=== PATIENT | male | born 1950 | race Caucasian/White ===

== ENCOUNTER 2018-06-03 09:45 | Observation (INO) | payer MEDICARE, BC ==
[2018-05-31 11:23] LABS: BASOPHILS # (AUTO) 0.1 (0.0-0.1); BASOPHILS % 0.4 % (0.0-1.0); EOSINOPHILS # (AUTO) 0.1 (0.0-0.4); EOSINOPHILS % 0.5 % (0.0-6.0); HEMATOCRIT 43.3 % (38.2-49.6); HEMOGLOBIN 14.5 g/dL (14.0-18.0); LYMPHOCYTES # (AUTO) 2.3 (1.0-3.2); LYMPHOCYTES % 13.7 % (18.0-39.1); MEAN CORPUSCULAR HEMOGLOBIN 30.3 pg (28-32); MEAN CORPUSCULAR HGB CONC 33.5 g/dL (31-35); MEAN CORPUSCULAR VOLUME 90.4 fL (81-99); MONOCYTES # (AUTO) 1.6 (0.2-0.8); MONOCYTES % 9.2 % (4.4-11.3); NEUTROPHILS # (AUTO) 12.8 (2.1-6.9); NEUTROPHILS % 75.7 % (38.7-80.0); PLATELET COUNT 310 x10e3/uL (140-360); RED BLOOD COUNT 4.79 x10e6/uL (4.3-5.7); RED CELL DISTRIBUTION WIDTH 12.6 % (11.7-14.4)
[2018-05-31 11:41] LABS: ANION GAP 15.4 mmol/L (8-16); BLOOD UREA NITROGEN 12 mg/dL (7-26); BUN/CREATININE RATIO 15 (6-25); CALCIUM 10.1 mg/dL (8.4-10.2); CARBON DIOXIDE 28 mmol/L (22-29); CHLORIDE 100 mmol/L (98-107); EST GLOMERULAR FILTRATION RATE > 60 ML/MIN (60-); GLUCOSE 94 mg/dL (74-118); POTASSIUM 4.4 mmol/L (3.5-5.1); SODIUM 139 mmol/L (136-145)
--- NOTE | 2018-05-31 11:59 | Diagnostic Imaging Report ---
EXAM: XR CHEST 2 VIEWS DATE: 05/31/2018 10:17 AM INDICATION: Preoperative, bladder surgery COMPARISON: None FINDINGS: Lines and Tubes: None Heart and Mediastinum: No acute cardiomediastinal findings. Lungs and Pleura: No significant pleural effusion, pneumothorax, or focal consolidation. Bones and Soft Tissues: No acute findings. IMPRESSION: 1. No acute cardiopulmonary findings. Signed by: Dr. Dixon Alvarez MD on 05/31/2018 11:55 AM
[~2018-06-03] VITALS: Ht 167.6 cm; Wt 64.9 kg
[~2018-06-03 09:45] MED LIST: ADVAIR 100-501 EACH INH; ASPIR 8181 MG PO; GABAPENTIN400 MG PO; LEXAPRO20 MG PO; LISINOPRIL10 MG PO; PRAVASTATIN SOD40 MG PO; SINGULAIR10 MG PO; TRAZODONE HCL100 MG PO; ULTRAM 50MG50 MG PO
--- OUTSIDE RECORDS SUMMARY | 2018-06-03 09:54 | XMS REPORT | Clinical Summary ---
Author Author [facility] Organization [facility] Address Unknown Phone Unavailable Care Team Providers Care Supervisor Filter Assembly Name Role Phone Asked, No Pcp PCP Unavailable Allergies Comments Active Allergy Reactions Severity Noted Date Fluoxetine 04/19/2018 Medications End Date Status Medication Sig Dispensed Refills Start Date Active VENTOLIN HFA 90 0 mcg/actuation inhaler 8 Active aspirin (ECOTRIN) 81 MG 0 enteric coated tablet 8 Active ADVAIR DISKUS 100-50 0 mcg/dose DISKUS 8 Active ciprofloxacin (CIPRO) 500 0 MG tablet 8 Active escitalopram (LEXAPRO) 20 0 MG tablet 8 Active pravastatin (PRAVACHOL) Take by mouth 0 10 MG tablet nightly. Active Problems Not on file Encounters Care Team Description Date Type Specialty Kevin Martinez MD Urinary retention (Primary Dx); Hematuria, unspecified type 04/19/2018 Emergency Emergency Medicine after 06/02/2017 Social History Date Tobacco Use Types Packs/Day Years Used Current Every Day Smoker Smokeless Tobacco: Current User Sex Assigned at Date Recorded Not on file Industry Job Start Date Occupation Not on file Not on file Not on file Travel End Travel History Travel Start No recent travel history available. Last Filed Vital Signs Time Taken Vital Sign Reading 04/19/2018 4:34 PM CDT Blood Pressure 131/68 04/19/2018 4:34 PM CDT Pulse 70 04/19/2018 3:23 PM CDT Temperature 36.1 C (97 F) 04/19/2018 4:34 PM CDT Respiratory Rate 18 04/19/2018 4:34 PM CDT Oxygen Saturation 98% - Inhaled Oxygen - Concentration 04/19/2018 1:07 PM CDT Weight 59 kg (130 lb) 04/19/2018 1:07 PM CDT Height 167.6 cm (5' 6") 04/19/2018 1:07 PM CDT Body Mass Index 20.98 Plan of Treatment Not on file Procedures Comments Procedure Name Priority Date/Time Associated Diagnosis URINALYSIS SCREEN AND STAT 04/19/2018 MICROSCOPY, WITH REFLEX 3:05 PM CDT TO CULTURE GRAM STAIN STAT 04/19/2018 3:05 PM CDT URINE CULTURE STAT 04/19/2018 3:05 PM CDT ESTIMATED GFR STAT 04/19/2018 2:35 PM CDT LIPASE LEVEL STAT 04/19/2018 2:35 PM CDT COMPREHENSIVE METABOLIC STAT 04/19/2018 PANEL 2:35 PM CDT HC COMPLETE BLD COUNT STAT 04/19/2018 W/AUTO DIFF 2:35 PM CDT after 06/02/2017 Results * Urinalysis screen and microscopy, with reflex to culture (04/19/2018 3:05 PM CDT) Specimen site Clean catch [facility] DEPARTMENT OF PATHOLOGY AND GENOMIC MEDICINE Color, UA Brown [facility] DEPARTMENT OF PATHOLOGY AND GENOMIC MEDICINE Appearance, UA Cloudy [facility] DEPARTMENT OF PATHOLOGY AND GENOMIC MEDICINE Specific gravity, UA 1.025 1.001 - 1.035 [facility] DEPARTMENT OF PATHOLOGY AND GENOMIC MEDICINE pH, UA 6.0 5.0 - 8.5 [facility] DEPARTMENT OF PATHOLOGY AND GENOMIC MEDICINE Protein, UA 3+ (A) Negative [facility] DEPARTMENT OF PATHOLOGY AND GENOMIC MEDICINE Glucose, UA color interference Negative [facility] DEPARTMENT OF PATHOLOGY AND GENOMIC MEDICINE Ketones, UA Trace (A) Negative [facility] DEPARTMENT OF PATHOLOGY AND GENOMIC MEDICINE Bilirubin, UA color interference Negative [facility] DEPARTMENT OF PATHOLOGY AND GENOMIC MEDICINE Blood, UA Large (A) Negative [facility] DEPARTMENT OF PATHOLOGY AND GENOMIC MEDICINE Nitrite, UA color interference Negative [facility] DEPARTMENT OF PATHOLOGY AND GENOMIC MEDICINE Urobilinogen, UA color interference <2.0 [facility] DEPARTMENT OF PATHOLOGY AND GENOMIC MEDICINE Leukocyte esterase, UA color interference Negative [facility] DEPARTMENT OF PATHOLOGY AND GENOMIC MEDICINE WBC, UA 10 (A) 0 - 1 /HPF [facility] DEPARTMENT OF PATHOLOGY AND GENOMIC MEDICINE RBC, UA >200 (H) 0 - 5 /HPF [facility] DEPARTMENT OF PATHOLOGY AND GENOMIC MEDICINE Bacteria, UA Many (A) None seen [facility] DEPARTMENT OF PATHOLOGY AND GENOMIC MEDICINE Yeast, UA None seen [facility] DEPARTMENT OF PATHOLOGY AND GENOMIC MEDICINE Yeast with pseudohyphae, None seen [facility] DEPARTMENT OF UA PATHOLOGY AND GENOMIC MEDICINE Specimen Urine Performing Organization Address City/State/Zipcode Phone Number [facility] DEPARTMENT OF [address] [place] [address] PATHOLOGY AND GENOMIC MEDICINE * Gram stain (04/19/2018 3:05 PM CDT) Gram stain result Occasional WBC's [facility] DEPARTMENT OF No organisms seen PATHOLOGY AND Comment: GENOMIC MEDICINE Specimen Information Specimen Source: Urine Specimen Site: Clean catch Specimen Urine Performing Organization Address City/State/Zipcode Phone Number [facility] DEPARTMENT OF [address] [place] [id number] PATHOLOGY AND GENOMIC MEDICINE * Urine culture (04/19/2018 3:05 PM CDT) Urine culture isolate No growth after 2 days. [facility] DEPARTMENT OF Comment: PATHOLOGY AND Specimen Information GENOMIC MEDICINE Specimen Source: Urine Specimen Site: Clean catch Specimen Urine Performing Organization Address City/[facility] Phone Number [facility] DEPARTMENT OF [address] [place] [phone] PATHOLOGY AND GENOMIC MEDICINE * Estimated GFR (04/19/2018 2:35 PM CDT) Estimated GFR >=90 mL/min/1.73 m2 [facility] DEPARTMENT OF Comment: PATHOLOGY AND [employer] GENOMIC MEDICINE rpretation G1 >=90 Normal or high G2 60-89Mildly decreased [id number] Mildly to moderately decreased [id number] Moderately to severely decreased G4 15-29Severely decreased G5 <15Kidney failure The eGFR was calculated using the Chronic Kidney Disease Epidemiology Collaboration (CKD-EPI) equation. Interpretation is based on recommendations of the National Kidney Foundation-Kidney Disease Outcomes Quality Initiative (NKF-KDOQI) published in 2014. Specimen Plasma specimen Performing Organization Address City/State/Zipcode Phone Number [facility] DEPARTMENT OF [address] [place] [address] PATHOLOGY AND GENOMIC MEDICINE * CBC with platelet and differential (04/19/2018 2:35 PM CDT) WBC 12.4 (H) 4.2 - 11.0 k/uL [facility] DEPARTMENT OF PATHOLOGY AND GENOMIC MEDICINE RBC 4.13 4.04 - 5.86 m/uL [facility] DEPARTMENT OF PATHOLOGY AND GENOMIC MEDICINE HGB 12.9 (L) 13.0 - 17.3 g/dL [facility] DEPARTMENT OF PATHOLOGY AND GENOMIC MEDICINE HCT 39.0 34.0 - 45.0 % [facility] DEPARTMENT OF PATHOLOGY AND GENOMIC MEDICINE MCV 94.4 80.0 - 98.0 fL [facility] DEPARTMENT OF PATHOLOGY AND GENOMIC MEDICINE MCH 31.2 27.0 - 34.0 pg [facility] DEPARTMENT OF PATHOLOGY AND GENOMIC MEDICINE MCHC 33.1 31.5 - 36.5 g/dL [facility] DEPARTMENT OF PATHOLOGY AND GENOMIC MEDICINE RDW - SD 43.3 37.0 - 51.0 fL [facility] DEPARTMENT OF PATHOLOGY AND GENOMIC MEDICINE MPV 9.2 7.4 - 10.4 fL [facility] DEPARTMENT OF PATHOLOGY AND GENOMIC MEDICINE Platelet count 319 150 - 400 k/uL [facility] DEPARTMENT OF PATHOLOGY AND GENOMIC MEDICINE Nucleated RBC 0.00 /100 WBC [facility] DEPARTMENT OF PATHOLOGY AND GENOMIC MEDICINE Neutrophils 73.1 (H) 36.0 - 66.0 % [facility] DEPARTMENT OF PATHOLOGY AND GENOMIC MEDICINE Lymphocytes 14.7 (L) 24.0 - 44.0 % [facility] DEPARTMENT OF PATHOLOGY AND GENOMIC MEDICINE Monocytes 10.0 (H) 0.0 - 6.0 % [facility] DEPARTMENT OF PATHOLOGY AND GENOMIC MEDICINE Eosinophils 1.3 0.0 - 6.0 % [facility] DEPARTMENT OF PATHOLOGY AND GENOMIC MEDICINE Basophils 0.3 0.0 - 1.2 % [facility] DEPARTMENT OF PATHOLOGY AND GENOMIC MEDICINE Immature granulocytes 0.6 0.0 - 1.0 % [facility] DEPARTMENT OF PATHOLOGY AND GENOMIC MEDICINE Specimen Blood Performing Organization Address City/[facility] [address] [facility] * Lipase level (04/19/2018 2:35 PM CDT) Lipase 26 13 - 60 U/L [facility] DEPARTMENT PATHOLOGY AND GENOMIC MEDICINE Specimen Plasma specimen Performing Organization Address City/[facility] [place] [address] [facility] * Comprehensive metabolic panel (04/19/2018 2:35 PM CDT) Sodium 134 (L) 135 - 150 mEq/L [facility] DEPARTMENT PATHOLOGY AND GENOMIC MEDICINE Potassium 4.1 3.5 - 5.0 mEq/L [facility] DEPARTMENT OF PATHOLOGY AND GENOMIC MEDICINE Chloride 96 (L) 98 - 112 mEq/L [facility] DEPARTMENT OF PATHOLOGY AND GENOMIC MEDICINE CO2 26 24 - 31 mmol/L [facility] DEPARTMENT OF PATHOLOGY AND GENOMIC MEDICINE Anion gap 12@ANIO 7 - 15 mEq/L [facility] DEPARTMENT OF PATHOLOGY AND GENOMIC MEDICINE BUN 11 7 - 18 mg/dL [facility] DEPARTMENT OF PATHOLOGY AND GENOMIC MEDICINE Creatinine 0.80 0.70 - 1.20 mg/dL [facility] DEPARTMENT OF PATHOLOGY AND GENOMIC MEDICINE Glucose 82 65 - 100 mg/dL [facility] DEPARTMENT OF PATHOLOGY AND GENOMIC MEDICINE Calcium 9.2 8.8 - 10.2 mg/dL [facility] DEPARTMENT OF PATHOLOGY AND GENOMIC MEDICINE Protein 7.5 6.3 - 8.3 g/dL [facility] DEPARTMENT OF PATHOLOGY AND GENOMIC MEDICINE Albumin 3.7 3.5 - 5.0 g/dL [facility] DEPARTMENT OF PATHOLOGY AND GENOMIC MEDICINE A/G ratio 1.0 0.7 - 3.8 [facility] DEPARTMENT OF PATHOLOGY AND GENOMIC MEDICINE Alkaline phosphatase 58 0 - 129 U/L [facility] DEPARTMENT OF PATHOLOGY AND GENOMIC MEDICINE AST 48 10 - 50 U/L [facility] DEPARTMENT OF PATHOLOGY AND GENOMIC MEDICINE ALT 33 5 - 50 U/L [facility] DEPARTMENT OF PATHOLOGY AND GENOMIC MEDICINE Total bilirubin 0.6 0.2 - 1.2 mg/dL [facility] DEPARTMENT OF PATHOLOGY AND GENOMIC MEDICINE Specimen Plasma specimen Performing Organization Address City/State/Zipcode Phone Number [facility] DEPARTMENT [place] [address] [place] [address] PATHOLOGY AND GENOMIC MEDICINE after 06/02/2017 Insurance Payer Benefit Subscriber ID Type Phone Address Plan / Group MEDICARE MEDICARE xxxxxxxxxx Medicare [place], [place] PART A AND B BCBS BCBS xxxxxxxxxxxx PPO CHOICE PPO/[employer] EMPL PPO Advance Directives Patient has advance care planning documents on file. For more information, nina cortes contact: Baljinder Myrick [address] [place] [address]
--- OUTSIDE RECORDS SUMMARY | 2018-06-03 09:54 | XMS REPORT | Summary of Care ---
Author Author [facility] Organization [facility] Address Unknown Phone Unavailable Encounter HQ Encntr_alias(FIN) [id number] Date(s): 11/12/15 - 11/12/15 [facility] [address] [place], [place] [address] [phone] Discharge Disposition: Home Attending Physician: Cesar Gan MD Vital Signs No data available for this section Problem List No data available for this section Allergies, Adverse Reactions, Alerts No data available for this section Medications No data available for this section Results No data available for this section Immunizations No data available for this section Procedures No data available for this section Social History No data available for this section Assessment and Plan No data available for this section
--- OUTSIDE RECORDS SUMMARY | 2018-06-03 09:54 | XMS REPORT | Continuity of Care Document ---
Author Author [facility] Interface Address Unknown Phone Unavailable Problems Problem Status Onset Date Classification Date Reported Comments Source LUMBAR RADICULOPATHY-724.4 (M54.16) Active 11/20/2015 [place] M54.2 - CERVICALGIA M54.12 - "RADICULOPA Active 11/06/2015 [facility] [place] Anxiety Active Problem 06/17/2016 [facility], [place] Back pain Active Problem 06/17/2016 [facility] [place] Carpal tunnel Active Problem 04/15/2016 [facility] [place] COPD Active Problem 06/17/2016 [facility] [place] Hypercholesteremia Active Problem 06/17/2016 [facility] [place] Numbness of leg Active Problem 06/17/2016 [facility] [place] Weakness of leg Active Problem 06/17/2016 [facility] [place] RADICULOPATHY, LUMBAR REGION Active [facility] BACK SURGERY Active [facility] DORSALGIA, UNSPECIFIED Active [facility] SPINAL STENOSIS, LUMBAR REGION Active [facility] Medications Medication Details Route Status Patient Instructions Ordering Provider Order Date Source oxyCODONE 5 mg oral tablet 5 mg=1 tab, PO, Q4H, PRN Pain Score 4-6, 0 Refill(s) Active 12/13/2015 [place] Acetaminophen 325 MG / Oxycodone Hydrochloride 10 MG Oral Tablet [Percocet 10/325] 2 tab, Route: PO, Drug Form: TAB, Dosing Weight 59.545, kg, Q4H, PRN Pain Score 7-10, Start date: 12/13/15 7:58:00 CDT, Duration: 30 day, Stop date: 01/12/16 7:57:00 CDTNotes: Do not exceed 4gm/day of acetaminophen. (Same as: Percocet-5/325) No Longer Active 12/13/2015 [place] tramadol hydrochloride 50 MG Oral Tablet 50 mg=1 tab, PO, Q4H, PRN Pain, 0 Refill(s) Active 12/13/2015 [facility] Belbuca 75 mcg buccal film =1 tab, PO, Q12H, 0 Refill(s) Active 12/13/2015 [facility] escitalopram 10 mg oral tablet 10 mg=1 tab, PO, Daily, # 30 tab, 0 Refill(s) Active 12/13/2015 [facility] pravastatin 20 mg oral tablet 20 mg=1 tab, PO, Bedtime, # 30 tab, 0 Refill(s) Active 12/13/2015 [facility] Pravastatin 20 mg, 1 tab, Route: PO, Drug form: TAB, Bedtime, Dosing Weight 59.545, kg, Start date: 12/12/15 23:00:00 CDT, Duration: 30 day, Stop date: 01/11/16 21:00:00 CDTNotes: (Same as: Pravachol) No Longer Active 12/13/2015 [facility] Tramadol 50 mg, 1 tab, Route: PO, Drug form: TAB, Q6H, Dosing Weight 59.545, kg, PRN Pain Score 4-6, Start date: 12/12/15 22:06:00 CDT, Duration: 30 day, Stop date: 01/11/16 22:05:00 CDTNotes: Not to exceed 4 00mg/day. (Same As: Ultram) No Longer Active 12/13/2015 [facility] Ancef + sodium chloride 0.9% INJ 100 mL 1 gm, Route: IVPB, ABXQ8H, Dosing Weight 59.136, kg, Start date: 12/12/15 17:00:00 CDT, Duration: 30 day, Stop date: 01/11/16 9:00:00 CDTNotes: (Same As: AncMaxi barthfzol) MEDICATION WASTE Product Size: 1000 mg Product Wasted: ___ mg No Longer Active 12/12/2015 [facility] NS + KCL 20mEq/L 1000ml (Premix) 1,000 mL 1,000 mL, Rate: 100 ml/hr, Infuse over: 10 hr, Route: IV, Dosing Weight 59.136 kg, Total Volume: 1,000, Start date: 12/12/15 16:15:00 CDT, Stop date: 01/11/16 16:14:00 CDTNotes: PREMIX IV - Do Not Alter WASTE: F/P - Sink; E - Municipal Trash Bin No Longer Active 12/12/2015 [place] Acetaminophen 325 MG / Hydrocodone Bitartrate 10 MG Oral Tablet [[place] 10/325] 2 tab, Route: PO, Drug Form: TAB, Dosing Weight 59.136, kg, Q6H, PRN Pain Score 7-10, Start date: 12/12/15 16:15:00 CDT, Duration: 30 day, Stop date: 01/11/16 16:14:00 CDTNotes: Do not exceed 4gm/day of acetaminophen. (Same as: [place] 325/10) No Longer Active 12/12/2015 [facility] Morphine 2 mg, 1 mL, Route: IVP, Drug form: INJ, Q2H, Dosing Weight 59.136, kg, PRN Pain Score 7-10, Start date: 12/12/15 16:15:00 CDT, Duration: 30 day, Stop date: 01/11/16 16:14:00 CDTNotes: (Same as:MORPhine Sulfate) No Longer Active 12/12/2015 [facility] neostigmine (ANES) Route: IV, Drug form: INJ, ONCE, Stop date: 12/12/15 13:50:00 CDT Inactive 12/12/2015 [place] dexamethasone (ANES) Route: IV, Drug form: INJ, ONCE, Stop date: 12/12/15 13:29:00 CDT Inactive 12/12/2015 [facility] ondansetron (ANES) Route: IV, Drug form: INJ, ONCE, Stop date: 12/12/15 13:29:00 CDT Inactive 12/12/2015 [place] phenylephrine (ANES) Route: IV, Drug form: INJ, ONCE, Stop date: 12/12/15 13:19:00 CDT Inactive 12/12/2015 [place] glycopyrrolate (ANES) Route: IV, Drug form: INJ, ONCE, Stop date: 12/12/15 13:14:00 CDT Inactive 12/12/2015 [facility] fentaNYL (ANES) Route: IV, Drug form: INJ, ONCE, Stop date: 12/12/15 13:14:00 CDT Inactive 12/12/2015 [place] rocuronium (ANES) Route: IV, Drug form: INJ, ONCE, Stop date: 12/12/15 13:14:00 CDT Inactive 12/12/2015 [place] propofol (ANES) Route: IV, Drug form: INJ, ONCE, Stop date: 12/12/15 13:14:00 CDT Inactive 12/12/2015 [place] lidocaine (ANES) Route: IV, Drug form: INJ, ONCE, Stop date: 12/12/15 13:14:00 CDT Inactive 12/12/2015 [facility] LR 1000 mL INJ (ANES) Route: IV, Total Volume: 1,000, Start date: 12/12/15 12:03:00 CDT, Stop date: 12/12/15 13:03:00 CDT Inactive 12/12/2015 [facility] ceFAZolin (ANES) (ANES) Route: IV, Drug form: INJ, Start date: 12/12/15 12:03:00 CDT, Stop date: 12/12/15 13:03:00 CDT Inactive 12/12/2015 [place] Cephalexin 500 MG Oral Capsule [Keflex] 500 mg=1 cap, PO, BID, X 7 day, # 14 cap, 0 Refill(s) No Longer Active 12/12/2015 [place] Carisoprodol 350 MG Oral Tablet [Soma] 350 mg=1 tab, PO, TID, X 14 day, # 42 tab, 0 Refill(s) No Longer Active 12/12/2015 [facility] Bel[place]uca 75 mcg buccal film 75 microgram=1 ea, BUC, Q12H, 0 Refill(s) No Longer Active 12/12/2015 [place] Neurontin 600 mg, 2 cap, Route: PO, Drug form: CAP, ONCALL, Start date: 12/12/15 6:00:00 CDT, Duration: 1 doses or times, Stop date: 12/13/15 0:00:00 CDTNotes: (Same as: Neurontin) Inactive 12/12/2015 [place] ceFAZolin 2 gm, 100 mL, Route: IVPB, Drug form: INJ, ONCALL, Start date: 12/12/15 6:00:00 CDT, Duration: 1 doses or times, Stop date: 12/13/15 0:00:00 CDTNotes: Same as: Ancef Inactive 12/12/2015 [place] Lactated Ringers Injection IV 1,000 mL 1,000 mL, Rate: 125 ml/hr, Infuse over: 8 hr, Route: IV, Dosing Weight 63.636 kg, Total Volume: 1,000, Start date: 12/12/15 6:00:00 CDT, Duration: 1 day, Stop date: 12/13/15 5:59:00 CDT No Longer Active 12/12/2015 [place] oxyCONTIN 20 mg, 2 tab, Route: PO, Drug form: ERTABMAURICE, Start date: 12/12/15 6:00:00 CDT, Duration: 1 doses or times, Stop date: 12/13/15 0:00:00 CDTNotes: Do not crush or chew. (Same as: OxyContin) Inactive 12/12/2015 [place] Ondansetron 4 mg, 2 mL, Route: IVP, Drug form: INJ, ONCE, Dosing Weight 63.636, kg, PRN Nausea & Vomiting, Start date: 12/11/15 19:57:00 CDTNotes: (Same as: Nelson) MEDICATION WASTE Product Size: 4 mg Product Wasted: ___ mg No Longer Active 12/12/2015 [place] Morphine 4 mg, 2 mL, Route: IVP, Drug form: INJ, Q5Min, Dosing Weight 63.636, kg, PRN Pain Score 7-10, Start date: 12/11/15 19:57:00 CDT, Duration: 3 doses or times, Stop date: Limited # of timesNotes: (Same as:MORPhine Sulfate) No Longer Active 12/12/2015 [place] Flumazenil 0.2 mg, 2 mL, Route: IVP, Drug form: INJ, PRN, Dosing Weight 63.636, kg, PRN Benzodiazepine Reversal, Initial dose, Start date: 12/11/15 19:57:00 CDT, Duration: 30 day, Stop date: 01/10/16 19:56:00 C DTNotes: (Same as: Romazicon) No Longer Active 12/12/2015 [place] Hydromorphone 0.5 mg, 0.25 mL, Route: IVP, Drug form: INJ, Q5Min, Dosing Weight 63.636, kg, PRN Pain Score 7-10, Start date: 12/11/15 19:57:00 CDT, Duration: 4 doses or times, Stop date: Limited # of timesNotes: ( Same as: Dilaudid) No Longer Active 12/12/2015 [place] Fentanyl 50 microgram, 1 mL, Route: IVP, Drug form: INJ, Q5Min, Dosing Weight 63.636, kg, PRN Pain Score 7-10, Start date: 12/11/15 19:57:00 CDT, Duration: 2 doses or times, Stop date: Limited # of timesNotes: (Same as: Sublimaze) Preservative free. No Longer Active 12/12/2015 [place] Calcium Chloride 0.0014 MEQ/ML / Potassium Chloride 0.004 MEQ/ML / Sodium Chloride 0.103 MEQ/ML / Sodium Lactate 0.028 MEQ/ML Injectable Solution 1,000 mL, Rate: 125 ml/hr, Infuse over: 8 hr, Route: IV, Dosing Weight 63.636 kg, Total Volume: 1,000, Start date: 12/11/15 19:57:00 CDT, Duration: 30 day, Stop date: 01/10/16 19:56:00 CDT No Longer Active 12/12/2015 [place] Naloxone 0.4 mg, 1 mL, Route: IVP, Drug form: INJ, Q2MIN, Dosing Weight 63.636, kg, PRN Narcotic Reversal, Start date: 12/11/15 19:57:00 CDT, Duration: 8 doses or times, Stop date: Limited # of timesNotes: Same as Narcan No Longer Active 12/12/2015 [place] Oxycodone 5 mg, 1 tab, Route: PO, Drug form: TAB, Q4H, Dosing Weight 63.636, kg, PRN Pain Score 4-6, Start date: 12/11/15 19:57:00 CDT, Duration: 30 day, Stop date: 01/10/16 19:56:00 CDTNotes: (Same as: Roxicodone) No Longer Active 12/12/2015 [place] Calcium Chloride 0.0014 MEQ/ML / Potassium Chloride 0.004 MEQ/ML / Sodium Chloride 0.103 MEQ/ML / Sodium Lactate 0.028 MEQ/ML Injectable Solution 1,000 mL, Rate: 25 ml/hr, Infuse over: 40 hr, Route: IV, Dosing Weight 63.636 kg, Total Volume: 1,000, Start date: 12/11/15 19:56:00 CDT, Duration: 30 day, Stop date: 01/10/16 19:55:00 CDT No Longer Active 12/12/2015 [facility] Pravastatin 20 mg=1 tab, PO, Bedtime, # 30 tab, 0 Refill(s) No Longer Active 12/10/2015 [place] Escitalopram PO, Daily, 0 Refill(s) No Longer Active 12/10/2015 [place] Tramadol 50 mg, PO, Q4-6H, PRN Pain, # 20 tab, 0 Refill(s) No Longer Active 12/10/2015 [facility] Allergies, Adverse Reactions, Alerts Substance Category Reaction Severity Reaction type Status Date Reported Comments Source FLUoxetine Assertion Itching Drug allergy Active [facility] Immunizations Immunization Date Given Site Status Last Updated Comments Source Results Order Name Results Value Reference Range Date Interpretation Comments Source CHEM PANEL BUN 6 mg/dL 7 - 22 12/14/2015 [facility] CHEM PANEL Sodium Lvl 135 meq/L 135 - 145 12/14/2015 [facility] CHEM PANEL Creatinine Lvl 0.57 mg/dL 0.50 - 1.40 12/14/2015 [facility] CHEM PANEL Chloride Lvl 102 meq/L 95 - 109 12/14/2015 [facility] CHEM PANEL eGFR 108 mL/min/1.73m2 12/14/2015 Result Comment: The eGFR is calculated using the CKD-EPI formula. In most young, healthy individuals the eGFR will be >90 mL/min/1.73m2. The eGFR declines with age. An eGFR of 60-89 may be normal in some populations, particularly the elderly, for whom the CKD-EPI formula has not been extensively validated. Use of the eGFR is not recommended in the following populations: Individuals with unstable creatinine concentrations, including patients and those with serious co-morbid conditions. Patients with extremes in muscle mass or diet. The data above are obtained from the National Kidney Disease Education Program (NKDEP) which additionally recommends that when the eGFR is used in patients with extremes of body mass index for purposes of drug dosing, the eGFR should be multiplied by the estimated BMI. [place] CHEM PANEL Calcium Lvl 8.2 mg/dL 8.5 - 10.5 12/14/2015 [place] CHEM PANEL CO2 27 meq/L 24 - 32 12/14/2015 [place] CHEM PANEL Potassium Lvl 3.8 meq/L 3.5 - 5.1 12/14/2015 [place] CHEM PANEL Glucose Lvl 100 mg/dL 70 - 99 12/14/2015 [place] CHEM PANEL AGAP 9.8 meq/L 10.0 - 20.0 12/14/2015 [place] HEMATOLOGY MCH 32.3 pg 27.0 - 31.0 12/14/2015 [place] HEMATOLOGY MCHC 33.2 g/dL 32.0 - 36.0 12/14/2015 [place] HEMATOLOGY RDW 13.1 % 11.5 - 14.5 12/14/2015 [place] HEMATOLOGY Platelet 162 K/CMM 133 - 450 12/14/2015 [place] HEMATOLOGY MPV 8.2 fL 7.4 - 10.4 12/14/2015 [place] HEMATOLOGY RBC 3.65 M/CMM 4.70 - 6.10 12/14/2015 [place] HEMATOLOGY Hgb 11.8 g/dL 14.0 - 18.0 12/14/2015 [place] HEMATOLOGY Hct 35.5 % 42.0 - 54.0 12/14/2015 [place] HEMATOLOGY MCV 97.2 fL 80.0 - 94.0 12/14/2015 [place] HEMATOLOGY WBC 10.7 K/CMM 3.7 - 10.4 12/14/2015 [place] HEMATOLOGY Monocytes # 1.2 K/CMM 0.0 - 0.8 12/14/2015 [place] HEMATOLOGY Eosinophils # 0.1 K/CMM 0.0 - 0.5 12/14/2015 [place] HEMATOLOGY Segs-Bands # 7.8 K/CMM 1.5 - 8.1 12/14/2015 [place] HEMATOLOGY Lymphocytes # 1.6 K/CMM 1.0 - 5.5 12/14/2015 [place] HEMATOLOGY Monocytes 11.5 % 2.0 - 12.0 12/14/2015 [place] HEMATOLOGY Eosinophils 0.6 % 0.0 - 4.0 12/14/2015 [place] HEMATOLOGY Segs 72.3 % 45.0 - 75.0 12/14/2015 [place] HEMATOLOGY Lymphocytes 15.3 % 20.0 - 40.0 12/14/2015 [place] HEMATOLOGY Basophils # 0.0 K/CMM 0.0 - 0.2 12/14/2015 [place] HEMATOLOGY Basophils 0.3 % 0.0 - 1.0 12/14/2015 [place] CHEM PANEL eGFR 98 mL/min/1.73m2 12/13/2015 Result Comment: The eGFR is calculated using the CKD-EPI formula. In most young, healthy individuals the eGFR will be >90 mL/min/1.73m2. The eGFR declines with age. An eGFR of 60-89 may be normal in some populations, particularly the elderly, for whom the CKD-EPI formula has not been extensively validated. Use of the eGFR is not recommended in the following populations: Individuals with unstable creatinine concentrations, including patients and those with serious co-morbid conditions. Patients with extremes in muscle mass or diet. The data above are obtained from the National Kidney Disease Education Program (NKDEP) which additionally recommends that when the eGFR is used in patients with extremes of body mass index for purposes of drug dosing, the eGFR should be multiplied by the estimated BMI. [place] CHEM PANEL BUN 8 mg/dL 7 - 22 12/13/2015 [place] CHEM PANEL Creatinine Lvl 0.72 mg/dL 0.50 - 1.40 12/13/2015 [place] CHEM PANEL Glucose Lvl 125 mg/dL 70 - 99 12/13/2015 [place] CHEM PANEL Sodium Lvl 136 meq/L 135 - 145 12/13/2015 [place] CHEM PANEL Potassium Lvl 4.4 meq/L 3.5 - 5.1 12/13/2015 [place] CHEM PANEL CO2 31 meq/L 24 - 32 12/13/2015 [place] CHEM PANEL Chloride Lvl 100 meq/L 95 - 109 12/13/2015 [place] CHEM PANEL Calcium Lvl 8.1 mg/dL 8.5 - 10.5 12/13/2015 [place] CHEM PANEL AGAP 9.4 meq/L 10.0 - 20.0 12/13/2015 [place] HEMATOLOGY RBC 3.98 M/CMM 4.70 - 6.10 12/13/2015 [place] HEMATOLOGY WBC 13.7 K/CMM 3.7 - 10.4 12/13/2015 [place] HEMATOLOGY Platelet 185 K/CMM 133 - 450 12/13/2015 [place] HEMATOLOGY RDW 13.2 % 11.5 - 14.5 12/13/2015 [place] HEMATOLOGY MPV 8.4 fL 7.4 - 10.4 12/13/2015 [place] HEMATOLOGY MCHC 32.7 g/dL 32.0 - 36.0 12/13/2015 [place] HEMATOLOGY MCH 31.8 pg 27.0 - 31.0 12/13/2015 [place] HEMATOLOGY Hct 38.7 % 42.0 - 54.0 12/13/2015 [place] HEMATOLOGY Hgb 12.6 g/dL 14.0 - 18.0 12/13/2015 [place] HEMATOLOGY MCV 97.3 fL 80.0 - 94.0 12/13/2015 [place] HEMATOLOGY Basophils # 0.0 K/CMM 0.0 - 0.2 12/13/2015 [place] HEMATOLOGY Lymphocytes 10.4 % 20.0 - 40.0 12/13/2015 [place] HEMATOLOGY Segs 79.1 % 45.0 - 75.0 12/13/2015 [place] HEMATOLOGY Eosinophils 0.2 % 0.0 - 4.0 12/13/2015 [place] HEMATOLOGY Monocytes 10.2 % 2.0 - 12.0 12/13/2015 [place] HEMATOLOGY Lymphocytes # 1.4 K/CMM 1.0 - 5.5 12/13/2015 [place] HEMATOLOGY Segs-Bands # 10.8 K/CMM 1.5 - 8.1 12/13/2015 [place] HEMATOLOGY Eosinophils # 0.0 K/CMM 0.0 - 0.5 12/13/2015 [place] HEMATOLOGY Monocytes # 1.4 K/CMM 0.0 - 0.8 12/13/2015 [place] HEMATOLOGY Basophils 0.1 % 0.0 - 1.0 12/13/2015 [place] Fluoroscopy assist to 1 hour DX Fluoroscopy assist to 1 hour DX No report is required for this exam. Technical component complete. Dose report sent to PACS. 12/12/2015 - - Electronically Signed by: Kylah Webb RT 12/12/15 15:57 FINAL REPORT [place] HEMATOLOGY PT 12.1 s 12.0 - 14.7 12/10/2015 [place] HEMATOLOGY INR 0.87 0.85 - 1.17 12/10/2015 [place] HEMATOLOGY PTT 31.0 s 22.9 - 35.8 12/10/2015 [place] Spine cervical wo contrast MRI Spine cervical wo contrast MRI MRI CERVICAL SPINE WITHOUT CONTRAST TECHNIQUE: Multiplanar multisequence imaging of the cervical spine was performed without administration of intravenous gadolinium. COMPARISON: No prior exam. FINDINGS: Multilevel disc desiccation is seen. C2-C3: Minimal posterior annular fissure is seen without central canal or foraminal stenosis. C3-C4: 2 mm disc bulge is seen with posterior annular fissure. No significant central canal stenosis is seen. Mild right foraminal stenosis is seen due to small right foraminal osteophytes. C4-C5: No central canal stenosis. There is [id number] left foraminal stenosis due to left foraminal osteophytes and mild left facet osteoarthritis. C5-C6: Moderate left ligamentum flavum redundancy is present. No central canal stenosis is present. No foraminal stenosis. C6-C7: Unremarkable. C7-T1: Unremarkable. The cervical cord signal is unremarkable without MRI evidence of myelomalacia. IMPRESSION: 1. Several levels of degenerative changes as above. C3-C4 mild right foraminal stenosis, C4-C5 [id number] left foraminal stenosis are present. 11/12/2015 - - Read by: Dean Nolen MD Dictated Date/time: 11/12/15 13:04 Electronically Signed by: Dean Nolen MD 11/12/15 13:12 FINAL REPORT [facility] Vital Signs Vital Sign Value Date Comments Source Respitory Rate 18 12/14/2015 [place] Systolic (mm Hg) 123 12/14/2015 [place] Diastolic (mm Hg) 70 12/14/2015 [place] Temperature Oral (F) 98.9 F 12/14/2015 [place] Heart Rate 71 12/14/2015 [place] Systolic (mm Hg) 127 12/14/2015 [place] Diastolic (mm Hg) 70 12/14/2015 [place] Heart Rate 73 12/14/2015 [place] Temperature Oral (F) 98.5 F 12/14/2015 [place] Heart Rate 69 12/14/2015 [place] Temperature Oral (F) 98.1 F 12/14/2015 [place] Systolic (mm Hg) 138 12/14/2015 [place] Diastolic (mm Hg) 70 12/14/2015 [place] Respitory Rate 18 12/14/2015 [place] Respitory Rate 20 12/14/2015 [place] Height 167.64 cm 12/13/2015 [place] Weight 59.545 12/13/2015 [place] BMI Calculated 21.19 12/13/2015 [place] Weight 59.545 12/13/2015 [place] BMI Calculated 21.19 12/13/2015 [place] Height 167.64 cm 12/13/2015 [place] Weight 59.136 12/12/2015 [place] BMI Calculated 21.04 12/12/2015 [place] Height 167.64 cm 12/10/2015 [place] Encounters Location Location Details Encounter Type Encounter Number Reason For Visit Attending Provider ADM Date DC Date Status Source [id number] [place]/12[place]2015 11/13/2015 [facility] [place] [id number] Patients [id number] Tarun Hairston 02/04/2016 03/05/2016 [facility] OP Therapy Patients [id number] Tarun Hairston 03/14/2016 04/13/2016 [facility] OP Therapy Patients [id number] Tarun Hairston 04/16/2016 05/16/2016 [facility] OP Therapy Patients [id number] Tarun Hairston 05/16/2016 06/15/2016 [facility] Procedures Procedure Code Date Perfomer Comments Source Arthroscopy of shoulder [id number] 07/06/1998 [facility] Arthroscopy of shoulder [id number] 07/06/1998 [place] Repair of hernia of abdominal wall [id number] 07/06/1979 [facility] Repair of hernia of abdominal wall [id number] 07/06/1979 [place] Decompression laminectomy of lumbar spine [id number] [facility] Tonsillectomy [id number] [facility] Decompression laminectomy of lumbar spine [id number] [facility] Tonsillectomy [id number] [facility]
--- OUTSIDE RECORDS SUMMARY | 2018-06-03 09:55 | XMS REPORT | Summary of Care ---
Author Author [facility] Organization [facility] Address Unknown Phone Unavailable Encounter HQ Kylee(FRANCO) [id number] Date(s): 12/12/15 - 12/14/15 [facility] [address] [place] [address]- Discharge Disposition: Home Attending Physician: Cesar Gan MD Referring Physician: Cesar Gan MD Vital Signs 1 2 3 Most recent to oldest [Reference Range]: 167.64 cm (12/12/15 9:35 PM) 167.64 cm (12/12/15 9:12 PM) 167.64 cm (12/10/15 10:03 AM) Height 98.9 DegF (12/14/15 10:00 AM) 98.5 DegF (12/14/15 7:00 AM) 98.1 DegF (12/14/15 4:10 AM) Temperature Oral [96.4-99.1 DegF] 123/70 mmHg (12/14/15 10:00 AM) 127/70 mmHg (12/14/15 7:00 AM) 138/70 mmHg (12/14/15 4:10 AM) Blood Pressure [90-140/60-90 mmHg] 18 BRMIN (12/14/15 10:00 AM) 18 BRMIN (12/14/15 4:10 AM) 20 BRMIN (12/14/15 12:14 AM) Respiratory Rate [14-20 BRMIN] 71 bpm (12/14/15 10:00 AM) 73 bpm (12/14/15 7:00 AM) 69 bpm (12/14/15 4:10 AM) Peripheral Pulse Rate [60-100 bpm] 59.545 kg (12/12/15 9:35 PM) 59.545 kg (12/12/15 9:12 PM) 59.136 kg (12/12/15 9:01 AM) Weight 21.19 m2 (12/12/15 9:35 PM) 21.19 m2 (12/12/15 9:12 PM) 21.04 m2 (12/12/15 9:01 AM) Body Mass Index Problem List Condition Effective Dates Status Health Status Informant Anxiety(Confirmed) Active Back pain(Confirmed) Active Carpal Active tunnel(Confirmed) COPD(Confirmed) Active Hypercholesteremia(C Active onfirmed) Numbness of Active leg(Confirmed) Weakness of Active leg(Confirmed) Allergies, Adverse Reactions, Alerts Substance Reaction Severity Status FLUoxetine Itching Active Medications Ancef + sodium chloride 0.9% INJ 100 mL 1 gm, Route: IVPB, ABXQ8H, Dosing Weight 59.136, kg, Start date: 12/12/15 17:00: 00 CDT, Duration: 30 day, Stop date: 01/11/16 9:00:00 CDT Notes: (Same As: Jakub Iglesias) MEDICATION WASTE Product Size: 1000 mgP roduct Wasted: ___ mg Start Date: 12/12/15 Stop Date: 12/14/15 Status: Discontinued ANES fentaNYL 50 microgram, 1 mL, Route: IVP, Drug form: INJ, Q5Min, Dosing Weight 63.636, kg, PRN Pain Score 7-10, Start date: 12/11/15 19:57:00 CDT, Duration: 2 doses or ti mes, Stop date: Limited # of times Notes: (Same as: Sublimaze) Preservative free. Start Date: 12/11/15 Stop Date: 12/14/15 Status: Discontinued ANES fentaNYL 25 microgram, 0.5 mL, Route: IVP, Drug form: INJ, Q5Min, Dosing Weight 63.636, k g, PRN Pain Score 4-6, Start date: 12/11/15 19:57:00 CDT, Duration: 4 doses or t imes, Stop date: Limited # of times Notes: (Same as: Sublimaze) Preservative free. Start Date: 12/11/15 Stop Date: 12/14/15 Status: Discontinued ANES flumazenil 0.2 mg, 2 mL, Route: IVP, Drug form: INJ, PRN, Dosing Weight 63.636, kg, PRN Elan zodiazepine Reversal, Initial dose, Start date: 12/11/15 19:57:00 CDT, Duration: 30 day, Stop date: 01/10/16 19:56:00 CDT Notes: (Same as: Romazicon) Start Date: 12/11/15 Stop Date: 12/14/15 Status: Discontinued ANES HYDROmorphone 0.5 mg, 0.25 mL, Route: IVP, Drug form: INJ, Q5Min, Dosing Weight 63.636, kg, NJ N Pain Score 7-10, Start date: 12/11/15 19:57:00 CDT, Duration: 4 doses or times , Stop date: Limited # of times Notes: (Same as: Dilaudid) Start Date: 12/11/15 Stop Date: 12/14/15 Status: Discontinued ANES morphine Sulfate 4 mg, 2 mL, Route: IVP, Drug form: INJ, Q5Min, Dosing Weight 63.636, kg, PRN Natalya n Score 7-10, Start date: 12/11/15 19:57:00 CDT, Duration: 3 doses or times, Sto p date: Limited # of times Notes: (Same as:MORPhine Sulfate) Start Date: 12/11/15 Stop Date: 12/14/15 Status: Discontinued ANES morphine Sulfate 2 mg, 1 mL, Route: IVP, Drug form: INJ, Q5Min, Dosing Weight 63.636, kg, PRN Natalya n Score 4-6, Start date: 12/11/15 19:57:00 CDT, Duration: 5 doses or times, Stop date: Limited # of times Notes: (Same as:MORPhine Sulfate) Start Date: 12/11/15 Stop Date: 12/14/15 Status: Discontinued ANES naloxone 0.4 mg, 1 mL, Route: IVP, Drug form: INJ, Q2MIN, Dosing Weight 63.636, kg, PRN N arcotic Reversal, Start date: 12/11/15 19:57:00 CDT, Duration: 8 doses or times, Stop date: Limited # of times Notes: Same as Narcan Start Date: 12/11/15 Stop Date: 12/14/15 Status: Discontinued ANES ondansetron 4 mg, 2 mL, Route: IVP, Drug form: INJ, ONCE, Dosing Weight 63.636, kg, PRN Naus ea & Vomiting, Start date: 12/11/15 19:57:00 CDT Notes: (Same as: Nelson) MEDICATION WASTE Product Size: 4 mgProduct Was itzel: ___ mg Start Date: 12/11/15 Stop Date: 12/14/15 Status: Discontinued ANES oxyCODONE 5 mg, 1 tab, Route: PO, Drug form: TAB, Q4H, Dosing Weight 63.636, kg, PRN Pain Score 4-6, Start date: 12/11/15 19:57:00 CDT, Duration: 30 day, Stop date: 01/09 19:56:00 CDT Notes: (Same as: Roxicodone) Start Date: 12/11/15 Stop Date: 12/14/15 Status: Discontinued Belbuca 75 mcg buccal film 75 microgram=1 ea, BUC, Q12H, 0 Refill(s) Start Date: 12/12/15 Stop Date: 12/13/15 Status: Discontinued Belbuca 75 mcg buccal film =1 tab, PO, Q12H, 0 Refill(s) Start Date: 12/13/15 Status: Ordered ceFAZolin 2 gm, 100 mL, Route: IVPB, Drug form: INJ, ONCALL, Start date: 12/12/15 6:00:00 CDT, Duration: 1 doses or times, Stop date: 12/13/15 0:00:00 CDT Notes: Same as: Ancef Start Date: 12/12/15 Stop Date: 12/12/15 Status: Completed ceFAZolin (ANES) (ANES) Route: IV, Drug form: INJ, Start date: 12/12/15 12:03:00 CDT, Stop date: 6 13:03:00 CDT Start Date: 12/12/15 Stop Date: 12/12/15 Status: Completed dexamethasone (ANES) Route: IV, Drug form: INJ, ONCE, Stop date: 12/12/15 13:29:00 CDT Start Date: 12/12/15 Stop Date: 12/12/15 Status: Completed escitalopram PO, Daily, 0 Refill(s) Start Date: 12/10/15 Stop Date: 12/13/15 Status: Discontinued escitalopram 10 mg oral tablet 10 mg=1 tab, PO, Daily, # 30 tab, 0 Refill(s) Start Date: 12/13/15 Status: Ordered fentaNYL (ANES) Route: IV, Drug form: INJ, ONCE, Stop date: 12/12/15 13:14:00 CDT Start Date: 12/12/15 Stop Date: 12/12/15 Status: Completed glycopyrrolate (ANES) Route: IV, Drug form: INJ, ONCE, Stop date: 12/12/15 13:14:00 CDT Start Date: 12/12/15 Stop Date: 12/12/15 Status: Completed Keflex 500 mg oral capsule 500 mg=1 cap, PO, BID, X 7 day, # 14 cap, 0 Refill(s) Start Date: 12/12/15 Stop Date: 12/13/15 Status: Completed Lactated Ringers Injection IV 1,000 mL 1,000 mL, Rate: 25 ml/hr, Infuse over: 40 hr, Route: IV, Dosing Weight 63.636 kg , Total Volume: 1,000, Start date: 12/11/15 19:56:00 CDT, Duration: 30 day, Stop date: 01/10/16 19:55:00 CDT Start Date: 12/11/15 Stop Date: 12/12/15 Status: Discontinued Lactated Ringers Injection IV 1,000 mL 1,000 mL, Rate: 125 ml/hr, Infuse over: 8 hr, Route: IV, Dosing Weight 63.636 kg , Total Volume: 1,000, Start date: 12/12/15 6:00:00 CDT, Duration: 1 day, Stop d ate: 12/13/15 5:59:00 CDT Start Date: 12/12/15 Stop Date: 12/13/15 Status: Completed Lactated Ringers Injection IV 1,000 mL 1,000 mL, Rate: 125 ml/hr, Infuse over: 8 hr, Route: IV, Dosing Weight 63.636 kg , Total Volume: 1,000, Start date: 12/11/15 19:57:00 CDT, Duration: 30 day, Stop date: 01/10/16 19:56:00 CDT Start Date: 12/11/15 Stop Date: 12/14/15 Status: Discontinued lidocaine (ANES) Route: IV, Drug form: INJ, ONCE, Stop date: 12/12/15 13:14:00 CDT Start Date: 12/12/15 Stop Date: 12/12/15 Status: Completed LR 1000 mL INJ (ANES) Route: IV, Total Volume: 1,000, Start date: 12/12/15 12:03:00 CDT, Stop date: 13:03:00 CDT Start Date: 12/12/15 Stop Date: 12/12/15 Status: Completed morphine Sulfate 2 mg, 1 mL, Route: IVP, Drug form: INJ, Q2H, Dosing Weight 59.136, kg, PRN Pain Score 7-10, Start date: 12/12/15 16:15:00 CDT, Duration: 30 day, Stop date: 02/18 16:14:00 CDT Notes: (Same as:MORPhine Sulfate) Start Date: 12/12/15 Stop Date: 12/14/15 Status: Discontinued neostigmine (ANES) Route: IV, Drug form: INJ, ONCE, Stop date: 12/12/15 13:50:00 CDT Start Date: 12/12/15 Stop Date: 12/12/15 Status: Completed Neurontin 600 mg, 2 cap, Route: PO, Drug form: CAP, ONCALL, Start date: 12/12/15 6:00:00 C DT, Duration: 1 doses or times, Stop date: 12/13/15 0:00:00 CDT Notes: (Same as: Neurontin) Start Date: 12/12/15 Stop Date: 12/12/15 Status: Completed Afton 10/325 oral tablet 2 tab, Route: PO, Drug Form: TAB, Dosing Weight 59.136, kg, Q6H, PRN Pain Score 7-10, Start date: 12/12/15 16:15:00 CDT, Duration: 30 day, Stop date: 01/11/16 1 6:14:00 CDT Notes: Do not exceed 4gm/day of acetaminophen. (Same as: Afton 325/10) Start Date: 12/12/15 Stop Date: 12/14/15 Status: Discontinued NS + KCL 20mEq/L 1000ml (Premix) 1,000 mL 1,000 mL, Rate: 100 ml/hr, Infuse over: 10 hr, Route: IV, Dosing Weight 59.136 k g, Total Volume: 1,000, Start date: 12/12/15 16:15:00 CDT, Stop date: 01/11/16 1 6:14:00 CDT Notes: PREMIX IV - Do Not AlterWASTE: F/P - Sink; E - Municipal Trash Bin Start Date: 12/12/15 Stop Date: 12/14/15 Status: Discontinued ondansetron (ANES) Route: IV, Drug form: INJ, ONCE, Stop date: 12/12/15 13:29:00 CDT Start Date: 12/12/15 Stop Date: 12/12/15 Status: Completed oxyCODONE 5 mg oral tablet 5 mg=1 tab, PO, Q4H, PRN Pain Score 4-6, 0 Refill(s) Start Date: 12/13/15 Status: Ordered oxyCONTIN 20 mg, 2 tab, Route: PO, Drug form: ERTAB, ONCALL, Start date: 12/12/15 6:00:00 CDT, Duration: 1 doses or times, Stop date: 12/13/15 0:00:00 CDT Notes: Do not crush or chew.(Same as: OxyContin) Start Date: 12/12/15 Stop Date: 12/12/15 Status: Completed Percocet 10/325 oral tablet 2 tab, Route: PO, Drug Form: TAB, Dosing Weight 59.545, kg, Q4H, PRN Pain Score 7-10, Start date: 12/13/15 7:58:00 CDT, Duration: 30 day, Stop date: 01/12/16 7: 57:00 CDT Notes: Do not exceed 4gm/day of acetaminophen. (Same as: Percocet-5/325) Start Date: 12/13/15 Stop Date: 12/14/15 Status: Discontinued phenylephrine (ANES) Route: IV, Drug form: INJ, ONCE, Stop date: 12/12/15 13:19:00 CDT Start Date: 12/12/15 Stop Date: 12/12/15 Status: Completed pravastatin 20 mg=1 tab, PO, Bedtime, # 30 tab, 0 Refill(s) Start Date: 12/10/15 Stop Date: 12/13/15 Status: Discontinued pravastatin 20 mg, 1 tab, Route: PO, Drug form: TAB, Bedtime, Dosing Weight 59.545, kg, Star t date: 12/12/15 23:00:00 CDT, Duration: 30 day, Stop date: 01/11/16 21:00:00 CD T Notes: (Same as: Pravachol) Start Date: 12/12/15 Stop Date: 12/14/15 Status: Discontinued pravastatin 20 mg oral tablet 20 mg=1 tab, PO, Bedtime, # 30 tab, 0 Refill(s) Start Date: 12/13/15 Status: Ordered propofol (ANES) Route: IV, Drug form: INJ, ONCE, Stop date: 12/12/15 13:14:00 CDT Start Date: 12/12/15 Stop Date: 12/12/15 Status: Completed rocuronium (ANES) Route: IV, Drug form: INJ, ONCE, Stop date: 12/12/15 13:14:00 CDT Start Date: 12/12/15 Stop Date: 12/12/15 Status: Completed Soma 350 mg oral tablet 350 mg=1 tab, PO, TID, X 14 day, # 42 tab, 0 Refill(s) Start Date: 12/12/15 Stop Date: 12/13/15 Status: Completed tramadol 50 mg, PO, Q4-6H, PRN Pain, # 20 tab, 0 Refill(s) Start Date: 12/10/15 Stop Date: 12/13/15 Status: Discontinued tramadol 50 mg, 1 tab, Route: PO, Drug form: TAB, Q6H, Dosing Weight 59.545, kg, PRN Pain Score 4-6, Start date: 12/12/15 22:06:00 CDT, Duration: 30 day, Stop date: 02/18 22:05:00 CDT Notes: Not to exceed 400mg/day. (Same As: Ultram) Start Date: 12/12/15 Stop Date: 12/14/15 Status: Discontinued tramadol 50 mg oral tablet 50 mg=1 tab, PO, Q4H, PRN Pain, 0 Refill(s) Start Date: 12/13/15 Status: Ordered Results ELECTROLYTES Most recent to 1 2 oldest [Reference Range]: Sodium Lvl [135-145 135 mEq/L 136 mEq/L mEq/L] (12/14/15 5:37 AM) (12/13/15 5:33 AM) Potassium Lvl 3.8 mEq/L 4.4 mEq/L [3.5-5.1 mEq/L] (12/14/15 5:37 AM) (12/13/15 5:33 AM) Chloride Lvl [95-109 102 mEq/L 100 mEq/L mEq/L] (12/14/15 5:37 AM) (12/13/15 5:33 AM) CO2 [24-32 mEq/L] 27 mEq/L 31 mEq/L (12/14/15 5:37 AM) (12/13/15 5:33 AM) AGAP [10.0-20.0 9.8 mEq/L 9.4 mEq/L mEq/L] *LOW* *LOW* (12/14/15 5:37 AM) (12/13/15 5:33 AM) CHEM PANEL Most recent to 1 2 oldest [Reference Range]: Creatinine Lvl 0.57 mg/dL 0.72 mg/dL [0.50-1.40 mg/dL] (12/14/15 5:37 AM) (12/13/15 5:33 AM) eGFR 108 mL/min/1.73m2 1 98 mL/min/1.73m2 2 *NA* *NA* (12/14/15 5:37 AM) (12/13/15 5:33 AM) BUN [7-22 mg/dL] 6 mg/dL 8 mg/dL *LOW* (12/13/15 5:33 AM) (12/14/15 5:37 AM) Glucose Lvl [70-99 100 mg/dL 125 mg/dL mg/dL] *HI* *HI* (12/14/15 5:37 AM) (12/13/15 5:33 AM) Calcium Lvl 8.2 mg/dL 8.1 mg/dL [8.5-10.5 mg/dL] *LOW* *LOW* (12/14/15 5:37 AM) (12/13/15 5:33 AM) 1Result Comment: The eGFR is calculated using the [...] from the National Kidney Disease Education Program ( NKDEP) which additionally recommends that when the eGFR is used in patients with extremes of body mass index for purposes of drug dosing, the eGFR should be mul tiplied by the estimated BMI. 2Result Comment: The eGFR is calculated using the [...] from the National Kidney Disease Education Program ( NKDEP) which additionally recommends that when the eGFR is used in patients with extremes of body mass index for purposes of drug dosing, the eGFR should be mul tiplied by the estimated BMI. HEMATOLOGY Most recent to 1 2 oldest [Reference Range]: WBC [3.7-10.4 K/CMM] 10.7 K/CMM 13.7 K/CMM *HI* *HI* (12/14/15 5:37 AM) (12/13/15 5:33 AM) RBC [4.70-6.10 3.65 M/CMM 3.98 M/CMM M/CMM] *LOW* *LOW* (12/14/15 5:37 AM) (12/13/15 5:33 AM) Hgb [14.0-18.0 g/dL] 11.8 g/dL 12.6 g/dL *LOW* *LOW* (12/14/15 5:37 AM) (12/13/15 5:33 AM) Hct [42.0-54.0 %] 35.5 % 38.7 % *LOW* *LOW* (12/14/15 5:37 AM) (12/13/15 5:33 AM) MCV [80.0-94.0 fL] 97.2 fL 97.3 fL *HI* *HI* (12/14/15 5:37 AM) (12/13/15:33 AM) MCH [27.0-31.0 pg] 32.3 pg 31.8 pg *HI* *HI* (12/14/15 5:37 AM) (12/13/15 5:33 AM) MCHC [32.0-36.0 33.2 g/dL 32.7 g/dL g/dL] (12/14/15 5:37 AM) (12/13/15 5:33 AM) RDW [11.5-14.5 %] 13.1 % 13.2 % (12/14/15 5:37 AM) (12/13/15 5:33 AM) Platelet [133-450 162 K/CMM 185 K/CMM K/CMM] (12/14/15 5:37 AM) (12/13/15 5:33 AM) MPV [7.4-10.4 fL] 8.2 fL 8.4 fL (12/14/15 5:37 AM) (12/13/15 5:33 AM) Segs [45.0-75.0 %] 72.3 % 79.1 % (12/14/15 5:37 AM) *HI* (12/13/15 5:33 AM) Lymphocytes 15.3 % 10.4 % [20.0-40.0 %] *LOW* *LOW* (12/14/15 5:37 AM) (12/13/15 5:33 AM) Monocytes [2.0-12.0 11.5 % 10.2 % %] (12/14/15 5:37 AM) (12/13/15 5:33 AM) Eosinophils [0.0-4.0 0.6 % 0.2 % %] (12/14/15 5:37 AM) (12/13/15 5:33 AM) Basophils [0.0-1.0 0.3 % 0.1 % %] (12/14/15 5:37 AM) (12/13/15 5:33 AM) Segs-Bands # 7.8 K/CMM 10.8 K/CMM [1.5-8.1 K/CMM] (12/14/15 5:37 AM) *HI* (12/13/15 5:33 AM) Lymphocytes # 1.6 K/CMM 1.4 K/CMM [1.0-5.5 K/CMM] (12/14/15 5:37 AM) (12/13/15 5:33 AM) Monocytes # [0.0-0.8 1.2 K/CMM 1.4 K/CMM K/CMM] *HI* *HI* (12/14/15 5:37 AM) (12/13/15 5:33 AM) Eosinophils # 0.1 K/CMM 0.0 K/CMM [0.0-0.5 K/CMM] (12/14/15 5:37 AM) (12/13/15 5:33 AM) Basophils # [0.0-0.2 0.0 K/CMM 0.0 K/CMM K/CMM] (12/14/15 5:37 AM) (12/13/15 5:33 AM) PT [12.0-14.7 12.1 seconds seconds] (12/10/15 10:51 AM) INR [0.85-1.17] 0.87 (12/10/15 10:51 AM) PTT [22.9-35.8 31.0 seconds seconds] (12/10/15 10:51 AM) Immunizations No data available for this section Procedures Procedure Date Related Diagnosis Body Site Arthroscopy of shoulder 1998 Repair of hernia of abdominal wall 1979 Decompression laminectomy of lumbar spine Tonsillectomy Social History Social History Type Response Substance Abuse Use: Past. Type: Cocaine.1 Exercise Exercise duration: 0. Employment/School Status: Employed. Alcohol Current, Type Beer. Frequency: 1-2 times per month. Smoking Status Current every day smoker; Type: Cigarettes; Number of years: 50; Ready to change: No; Concerns about tobacco use in household: No; Exposure to Tobacco Smoke pt smokes; Cigarette Smoking Last 365 Days Yes; Reg Smoking Cessation Counseling No 1past history 25 years ago Assessment and Plan No data available for this section
--- OUTSIDE RECORDS SUMMARY | 2018-06-03 09:55 | XMS REPORT | Summary of Care ---
Author Author [facility] Organization [facility] Address Unknown Phone Unavailable Encounter HQ Emmett_james(FIN) [id number] Date(s): 05/16/16 - 06/14/16 [facility] Discharge Disposition: Home or Self Care Attending Physician: Tarun Hairston Vital Signs No data available for this section Problem List Condition Effective Dates Status Health Status Informant Anxiety(Confirmed) Active Back pain(Confirmed) Active COPD(Confirmed) Active Hypercholesteremia(C Active onfirmed) Numbness of Active leg(Confirmed) Weakness of Active leg(Confirmed) Allergies, Adverse Reactions, Alerts Substance Reaction Severity Status FLUoxetine Itching Active Medications No data available for this section [...]
--- OUTSIDE RECORDS SUMMARY | 2018-06-03 09:55 | XMS REPORT ---
Author Author [facility] Address Unknown Phone Unavailable Care Team Providers Care Cardiology Clinical Consultant Name Role Phone Miriam ALLEN Unavailable Unavailable Problems This patient has no known problems. Allergies, Adverse Reactions, Alerts This patient has no known allergies or adverse reactions. Medications This patient has no known medications. Results Test Description Test Time Test Comments Text Results Atomic Results Result Comments CHEST 2 VIEWS 2018-05-31 11:55:00 [place] [address] Patient Name: SMILEY ROBERT MR #: [id number] : 1950 Age/Sex: 67/M Req #: [id number] [facility] Physician: Ordered by: ROSY ALLEN MD Report #: [id number] Location: OR Room/Bed: Procedure: [id number] DX/CHEST 2 VIEWS Exam Date: 05/31/18 Exam Time: 1045 REPORT STATUS: Signed EXAM: XR CHEST 2 VIEWS DATE: 05/31/2018 10:17 AM INDICATION: Preoperative, bladder surgery COMPARISON: None FINDINGS: Lines and Tubes: None Heart and Mediastinum: No acute cardiomediastinal findings. Lungs and Pleura: No significant pleural effusion, pneumothorax, or focal consolidation. Bones and Soft Tissues: No acute findings. IMPRESSION: 1. No acute cardiopulmonary findings. Signed by: Dr. Dixon Jordan MD on 05/31/2018 11:55 AM Dictated By: DIXON JORDAN MD 115 Transcribed By: [facility] on 05/31/18 115 COPY TO: ROSY ALLEN MD
--- OUTSIDE RECORDS SUMMARY | 2018-06-03 09:55 | XMS REPORT | Summary of Care ---
Author Author [facility] Organization [facility] Address Unknown Phone Unavailable Encounter HQ Emmett_james(FRANCO) [id number] Date(s): 03/14/16 - 04/12/16 [facility] Discharge Disposition: Home or Self Care Attending [...]
--- OUTSIDE RECORDS SUMMARY | 2018-06-03 09:55 | XMS REPORT | Summary of Care ---
Author Author [facility] Organization [facility] Address Unknown Phone Unavailable Encounter DALY Christine_james(FRANCO) [id number] Date(s): 02/04/16 - 03/04/[address] [facility] Discharge Disposition: Home or Self Care [...]
--- OUTSIDE RECORDS SUMMARY | 2018-06-03 09:55 | XMS REPORT | Summary of Care ---
Author Author [facility] Organization [facility] Address Unknown Phone Unavailable Encounter HQ Emmett_james(FIN) [id number] Date(s): 04/16/16 - 05/15/16 [facility] Discharge Disposition: Home or Self [...]
[2018-06-03] MEDS ORDERED: CEFTRIAXONE SOD 1 GM VIAL ONE (10:18)
[2018-06-03] MEDS ORDERED: BELLADONNA/OPIUM 60 MG SUPP PR ONE (13:10)
[2018-06-03] MEDS ORDERED: MIDAZOLAM HCL 2 MG/2 ML VIAL ONE (14:26)
[2018-06-03] MEDS ORDERED: FENTANYL CITRATE/PF 100MCG/2 ML INJ ONE (14:26)
--- OUTSIDE RECORDS SUMMARY | 2018-06-03 14:43 | XMS REPORT | Clinical Summary ---
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 Name Role Phone Asked, No Pcp PCP [...] 3:05 PM CDT) Specimen site Clean catch [facility] DEPARTMENT OF PATHOLOGY AND GENOMIC MEDICINE Color, UA Brown [facility] DEPARTMENT OF PATHOLOGY AND GENOMIC MEDICINE Appearance, UA Cloudy [facility] DEPARTMENT OF PATHOLOGY AND GENOMIC MEDICINE Specific gravity, UA 1.025 1.001 - 1.035 [facility] DEPARTMENT OF PATHOLOGY AND GENOMIC MEDICINE pH, UA 6.0 5.0 - 8.5 [facility] DEPARTMENT OF PATHOLOGY AND GENOMIC MEDICINE Protein, UA 3+ (A) Negative [facility] DEPARTMENT OF PATHOLOGY AND GENOMIC MEDICINE Glucose, UA color interference Negative [facility] DEPARTMENT OF PATHOLOGY AND GENOMIC MEDICINE Ketones, UA Trace (A) Negative [facility] DEPARTMENT OF PATHOLOGY AND GENOMIC MEDICINE Bilirubin, UA color interference Negative [facility] DEPARTMENT OF PATHOLOGY AND GENOMIC MEDICINE Blood, UA Large (A) Negative [facility] DEPARTMENT OF PATHOLOGY AND GENOMIC MEDICINE Nitrite, UA color interference Negative [facility] DEPARTMENT OF PATHOLOGY AND GENOMIC MEDICINE Urobilinogen, UA color interference <2.0 [facility] DEPARTMENT OF PATHOLOGY AND GENOMIC MEDICINE Leukocyte esterase, UA color interference Negative [facility] DEPARTMENT OF PATHOLOGY AND GENOMIC MEDICINE WBC, UA 10 (A) 0 - 1 /HPF [facility] DEPARTMENT OF PATHOLOGY AND GENOMIC MEDICINE RBC, UA >200 (H) 0 - 5 /HPF [facility] DEPARTMENT OF PATHOLOGY AND GENOMIC MEDICINE Bacteria, UA Many (A) None seen [facility] DEPARTMENT OF PATHOLOGY AND GENOMIC MEDICINE Yeast, UA None seen [facility] DEPARTMENT OF PATHOLOGY AND GENOMIC MEDICINE Yeast with pseudohyphae, None seen [facility] DEPARTMENT OF UA PATHOLOGY AND GENOMIC MEDICINE Specimen Urine Performing Organization Address City/State/Zipcode Phone Number [facility] DEPARTMENT OF [address] [place] [address] PATHOLOGY AND GENOMIC MEDICINE * Gram stain (04/19/2018 3:05 PM CDT) Gram stain result Occasional WBC's [facility] DEPARTMENT OF No organisms seen PATHOLOGY AND Comment: GENOMIC MEDICINE Specimen Information Specimen Source: Urine Specimen Site: Clean catch Specimen Urine Performing Organization Address City/State/Zipcode Phone Number [facility] DEPARTMENT OF [address] [place] [phone] PATHOLOGY AND GENOMIC MEDICINE * Urine culture (04/19/2018 3:05 PM CDT) Urine culture isolate No growth after [address] [facility] DEPARTMENT OF Comment: PATHOLOGY AND Specimen Information GENOMIC MEDICINE Specimen Source: Urine Specimen Site: Clean catch Specimen Urine Performing Organization Address City/[facility] Phone Number [facility] DEPARTMENT OF [address] [place] [phone] PATHOLOGY AND GENOMIC MEDICINE * Estimated GFR (04/19/2018 2:35 PM CDT) Estimated GFR >=90 mL/min/1.73 m2 [facility] DEPARTMENT OF Comment: PATHOLOGY AND CatergoryUnitsInte GENOMIC MEDICINE rpretation G1 >=90 Normal or high G2 60-89Mildly decreased [id number] Mildly to moderately decreased Q6d51-12 Moderately to severely decreased G4 15-29Severely decreased G5 <15Kidney failure The eGFR was calculated using the Chronic Kidney Disease Epidemiology Collaboration (CKD-EPI) equation. Interpretation is based on recommendations of the National Kidney Foundation-Kidney Disease Outcomes Quality Initiative (NKF-KDOQI) published in 2014. Specimen Plasma specimen Performing Organization Address City/State/Zipcode Phone Number [facility] DEPARTMENT OF [address] [place] [address] PATHOLOGY AND GENOMIC MEDICINE * CBC with platelet and differential (04/19/2018 2:35 PM CDT) WBC 12.4 (H) 4.2 - 11.0 k/uL [facility] DEPARTMENT OF PATHOLOGY AND GENOMIC MEDICINE RBC 4.13 4.04 - 5.86 m/uL [facility] DEPARTMENT OF PATHOLOGY AND GENOMIC MEDICINE HGB 12.9 (L) 13.0 - 17.3 g/dL [facility] DEPARTMENT OF PATHOLOGY AND GENOMIC MEDICINE HCT 39.0 34.0 - 45.0 % [facility] DEPARTMENT OF PATHOLOGY AND GENOMIC MEDICINE MCV 94.4 80.0 - 98.0 fL [facility] DEPARTMENT OF PATHOLOGY AND GENOMIC MEDICINE MCH 31.2 27.0 - 34.0 pg [facility] DEPARTMENT OF PATHOLOGY AND GENOMIC MEDICINE MCHC 33.1 31.5 - 36.5 g/dL [facility] DEPARTMENT OF PATHOLOGY AND GENOMIC MEDICINE RDW - SD 43.3 37.0 - 51.0 fL [facility] DEPARTMENT OF PATHOLOGY AND GENOMIC MEDICINE MPV 9.2 7.4 - 10.4 fL [facility] DEPARTMENT OF PATHOLOGY AND GENOMIC MEDICINE Platelet count 319 150 - 400 k/uL [facility] DEPARTMENT OF PATHOLOGY AND GENOMIC MEDICINE Nucleated RBC 0.00 /100 WBC [facility] DEPARTMENT OF PATHOLOGY AND GENOMIC MEDICINE Neutrophils 73.1 (H) 36.0 - 66.0 % [facility] DEPARTMENT OF PATHOLOGY AND GENOMIC MEDICINE Lymphocytes 14.7 (L) 24.0 - 44.0 % [facility] DEPARTMENT OF PATHOLOGY AND GENOMIC MEDICINE Monocytes 10.0 (H) 0.0 - 6.0 % [facility] DEPARTMENT OF PATHOLOGY AND GENOMIC MEDICINE Eosinophils 1.3 0.0 - 6.0 % [facility] DEPARTMENT OF PATHOLOGY AND GENOMIC MEDICINE Basophils 0.3 0.0 - 1.2 % [facility] DEPARTMENT OF PATHOLOGY AND GENOMIC MEDICINE Immature granulocytes 0.6 0.0 - 1.0 % [facility] DEPARTMENT OF PATHOLOGY AND GENOMIC MEDICINE Specimen Blood Performing Organization Address City/[facility] [place] [address] PATHOLOGY [facility] * Lipase level (04/19/2018 2:35 PM CDT) Lipase 26 13 - 60 U/L [facility] DEPARTMENT PATHOLOGY AND GENOMIC MEDICINE Specimen Plasma specimen Performing Organization Address City/[facility] [place] [address] PATHOLOGY [facility] * Comprehensive metabolic panel (04/19/2018 2:35 PM CDT) Sodium 134 (L) 135 - 150 mEq/L [facility] DEPARTMENT PATHOLOGY AND GENOMIC MEDICINE Potassium 4.1 3.5 - 5.0 mEq/L [facility] DEPARTMENT OF PATHOLOGY AND GENOMIC MEDICINE Chloride 96 (L) 98 - 112 mEq/L [facility] DEPARTMENT OF PATHOLOGY AND GENOMIC MEDICINE CO2 26 24 - 31 mmol/L [facility] DEPARTMENT OF PATHOLOGY AND GENOMIC MEDICINE Anion gap 12@ANIO 7 - 15 mEq/L [facility] DEPARTMENT OF PATHOLOGY AND GENOMIC MEDICINE BUN 11 7 - 18 mg/dL [facility] DEPARTMENT OF PATHOLOGY AND GENOMIC MEDICINE Creatinine 0.80 0.70 - 1.20 mg/dL [facility] DEPARTMENT OF PATHOLOGY AND GENOMIC MEDICINE Glucose 82 65 - 100 mg/dL [facility] DEPARTMENT OF PATHOLOGY AND GENOMIC MEDICINE Calcium 9.2 8.8 - 10.2 mg/dL [facility] DEPARTMENT OF PATHOLOGY AND GENOMIC MEDICINE Protein 7.5 6.3 - 8.3 g/dL [facility] DEPARTMENT OF PATHOLOGY AND GENOMIC MEDICINE Albumin 3.7 3.5 - 5.0 g/dL [facility] DEPARTMENT OF PATHOLOGY AND GENOMIC MEDICINE A/G ratio 1.0 0.7 - 3.8 [facility] DEPARTMENT OF PATHOLOGY AND GENOMIC MEDICINE Alkaline phosphatase 58 0 - 129 U/L [facility] DEPARTMENT OF PATHOLOGY AND GENOMIC MEDICINE AST 48 10 - 50 U/L [facility] DEPARTMENT OF PATHOLOGY AND GENOMIC MEDICINE ALT 33 5 - 50 U/L [facility] DEPARTMENT OF PATHOLOGY AND GENOMIC MEDICINE Total bilirubin 0.6 0.2 - 1.2 mg/dL [facility] DEPARTMENT OF PATHOLOGY AND GENOMIC MEDICINE Specimen Plasma specimen Performing Organization Address City/State/Zipcode Phone Number [facility] DEPARTMENT [place] [address] [place] [address] PATHOLOGY AND GENOMIC MEDICINE after 06/02/2017 Insurance Payer Benefit Subscriber ID Type Phone Address Plan / Group MEDICARE MEDICARE xxxxxxxxxx Medicare [place], [place] PART A AND B BCBS BCBS xxxxxxxxxxxx PPO CHOICE PPO/[employer] PPO Advance Directives Patient has advance care planning documents on file. For more information, nina cortes contact: Baljinder Myrick [address] [place] [address]
--- NOTE | 2018-06-03 16:00 | NUR ---
Patient received via stretcher from PACU. Respirations even and unlabored, no distress noted at this time. at bedside. states patient has intermittent confusion at times. Blanchable redness to sacrum noted. Bed locked and in low position, and enio light within reach.
[2018-06-03 16:07] VITALS: BP 152/73
[2018-06-03] MEDS ORDERED: HYDROCODONE/APAP 5MG-325MG TAB PO PRN (16:30)
[2018-06-03] MEDS ORDERED: DEXTROSE 5%/LACTATED RINGERS 1,000 ML IV SCH (16:45)
[2018-06-03] MEDS ORDERED: TRAMADOL HCL 50 MG TAB PO PRN (16:45)
[2018-06-03] MEDS ORDERED: LISINOPRIL 10 MG TAB PO SCH (17:00)
[2018-06-03] MEDS ORDERED: DEXAMETHASONE SOD PHOS INJ 4 MG/ML VIAL ONE (18:08)
[2018-06-03] MEDS ORDERED: PROPOFOL IV EMULSION 10 MG/ML 20 ML VIAL ONE (18:08)
[2018-06-03] MEDS ORDERED: LIDOCAINE HCL 2% LOCAL INJ 5 ML SDV VIAL INJ ONE (18:08)
[2018-06-03] MEDS ORDERED: ONDANSETRON HCL INJ 2 MG/ML VIAL ONE (18:08)
[2018-06-03] MEDS ORDERED: SEVOFLURANE INHAL SOLN 250 ML PEN BTL ONE (18:08)
[2018-06-03 19:10] VITALS: BP 128/69
--- NOTE | 2018-06-03 19:10 | NUR ---
REPORT RECEIVED FROM OFF GOING NURSE PT SITTING UP IN BED ALERT AND ORIENTED, NO DISTRESS NOTED, O2 NC WORN, CBI IN PROGRESS WITH NO COMPLICATION NOTED, BED DENIES NEEDS, CALL LIGHT IN REACH, BED LOCKED AND LOW, INSTRUCTED TO CALL WITH NEEDS
[2018-06-03] MEDS: CIPROFLOXACIN 500 MG TAB PO SCH (19:43)
[2018-06-03 20:00] VITALS: BP 128/69
[2018-06-03] MEDS: SALMETEROL/FLUTICASONE 100/50 INH SCH (20:00)
[2018-06-03] MEDS: LISINOPRIL 10 MG TAB PO SCH (20:00)
[2018-06-03] MEDS: GABAPENTIN 400 MG CAP PO SCH (20:06)
[2018-06-03] MEDS: DEXTROSE 5%/LACTATED RINGERS 1,000 ML IV SCH (20:27)
[2018-06-03] MEDS: HYDROCODONE/APAP 5MG-325MG TAB PO PRN (20:28)
--- NOTE | 2018-06-03 20:28 | NUR ---
PRN GIVEN FOR PAIN
[2018-06-03] MEDS ORDERED: NON-FORMULARY MEDICATION (Trazodone Hcl 100 MG) PO SCH (21:00)
[2018-06-03] MEDS ORDERED: PRAVASTATIN 20 MG TAB PO SCH (21:00)
[2018-06-03] MEDS ORDERED: MONTELUKAST SODIUM 10 MG TAB PO SCH (21:00)
[2018-06-03] MEDS ORDERED: TRAZODONE HCL 50 MG TAB PO SCH (21:00)
[2018-06-03] MEDS ORDERED: NON-FORMULARY MEDICATION (Pravastatin Sodium 40 MG) PO SCH (21:00)
[2018-06-04] VITALS: BP 114/58
--- NOTE | 2018-06-04 01:20 | NUR ---
PRN GIVEN FOR PAIN
[2018-06-04 04:00] VITALS: BP 120/60
--- NOTE | 2018-06-04 05:17 | NUR ---
PT SITTING UP IN BED ALERT AND ORIENTED, DENIES NEEDS, CBI IN PROGRESS WITH CLEAR OUT PUT NOTED, IV INFUSING PER ORDER, BED LOCKED AND LOW, CALL LIGHT IN REACH, INSTRUCTED TO CALL WITH NEEDS
[2018-06-04] MEDS: DEXTROSE 5%/LACTATED RINGERS 1,000 ML IV SCH (05:22)
[2018-06-04] MEDS: HYDROCODONE/APAP 5MG-325MG TAB PO PRN (07:18)
--- NOTE | 2018-06-04 07:25 | NUR ---
patient received with continuous bladder irrigation in progress. urine is pink tinged with very small blood clots present. see shift assess. medicated for pain with norco one tab.
[2018-06-04] MEDS: SALMETEROL/FLUTICASONE 100/50 INH SCH (07:39)
[2018-06-04 08:00] VITALS: BP 136/60
[2018-06-04 08:08] VITALS: BP 136/60
--- NOTE | 2018-06-04 08:18 | NUR ---
Dr Aviles in to see patient. marcelo removed by MD and patient DTV x2 prior to discharging home today. prescriptions will be called in from Dr Aviles office.
[2018-06-04] MEDS: LISINOPRIL 10 MG TAB PO SCH (08:32)
[2018-06-04] MEDS: CIPROFLOXACIN 500 MG TAB PO SCH (08:32)
[2018-06-04] MEDS: GABAPENTIN 400 MG CAP PO SCH (08:32)
[2018-06-04] MEDS ORDERED: ESCITALOPRAM OXALATE 10 MG TAB PO SCH (09:00)
[2018-06-04] MEDS ORDERED: NON-FORMULARY MEDICATION (Escitalopram Oxalate (Lexapro) 20 MG) PO SCH (09:00)
[2018-06-04] MEDS ORDERED: NICOTINE 14 MG/EA PATCH TOP SCH (09:00)
[2018-06-04 12:28] VITALS: BP 121/65
[2018-06-04] MEDS ORDERED: SIMVASTATIN 20 MG TAB PO SCH (21:00)
--- NOTE | 2018-06-30 14:30 | Operative Report ---
DATE OF PROCEDURE: June 03, 2018 PREOPERATIVE DIAGNOSES 1. Hematuria. 2. Bladder mass. POSTOPERATIVE DIAGNOSES 1. Hematuria. 2. Bladder mass. OPERATIVE PROCEDURES PERFORMED 1. Cystoscopy. 2. Transurethral resection of a large bladder tumor. ANESTHESIA: General. ESTIMATED BLOOD LOSS: Minimal. INDICATIONS: Mr. Phillip Crowder is a 57-year-old gentleman with recent gross hematuria. He was found by ultrasound to have a 4+ cm mass on the lateral wall of the bladder. He now presents for definitive surgical management of this problem. DETAILS OF PROCEDURE: The patient was brought into the operating room and placed in the supine position. After administration of general anesthesia, he was placed in the dorsal lithotomy position and prepped and draped in the usual sterile fashion. Cystourethroscopy was performed using a 21-[place] cystoscope. The anterior and posterior urethra was noted to be normal. The prostate revealed mild elevation of the median bar and lateral lobar hyperplasia. The bladder was entered with mild difficulty. Upon entrance into the bladder, the ureteral orifices were in normal anatomical position. There was clear efflux bilaterally. There were grade 1 to 2 trabeculations noted throughout. On the left lateral wall, there was a large papillary tumor about cm in total diameter. The base of the tumor appeared without CIS. The bladder was left full. The cystoscope and sheath were removed. A 24-[place] resectoscope sheath was then placed in a retrograde fashion, and the QRuso resectoscope was used to perform the procedure. The papillary tumor was resected down to the muscle in its entirety. There was no visible tumor material left at the conclusion of the procedure. Hemostasis was obtained using the electrocautery device. The bleeding muscular tissue was particularly cauterized. There were no other lesions noted elsewhere in the bladder. The bladder was left full, and the resectoscope and sheath were removed. A 24-[place], 3-way catheter was then placed and the balloon inflated with 35 mL of sterile water. Urinary efflux was noted to be blood tinged. The patient was started on continuous bladder irrigation and was returned to the supine position. Anesthesia was reversed, and he was transferred to the bed and taken to the postanesthesia care unit in good condition. Of note, the needle and instrument counts were correct at the conclusion of the case. Job#: [id number]
== END 2018-06-04 12:20 | disposition home or self-care (01) ==
LOC: OR 09:45 → PACU V 14:34 → IMCU 19:11
PROVIDERS: ADMIT Urology; ATTEND Urology
DX: C67.2 Malignant neoplasm of lateral wall of bladder (principal); Z01.810 Encounter for preprocedural cardiovascular examination; Z01.812 Encounter for preprocedural laboratory examination; Z01.811 Encounter for preprocedural respiratory examination; R31.9 Hematuria, unspecified; I10 Essential (primary) hypertension; J44.9 Chronic obstructive pulmonary disease, unspecified; Z88.8 Allergy status to other drugs, medicaments and biological substances
CPT/HCPCS: 36415; 52235; 71046; 80048; 85025; 88305; 93005; 94640; G0378 ×2; J0696; J1100; J2001; J2250; J2405; J2704; J7121 ×2

== ENCOUNTER → 2018-10-14 | Day surgery (SDC) | payer MEDICARE, BC ==
[2018-10-08 12:28] LABS: BASOPHILS % 0.6 % (0.0-1.0); EOSINOPHILS # (AUTO) 0.1 (0.0-0.4); EOSINOPHILS % 1.5 % (0.0-6.0); HEMATOCRIT 25.2 % (38.2-49.6); HEMOGLOBIN 8.4 g/dL (14.0-18.0); LYMPHOCYTES # (AUTO) 1.7 (1.0-3.2); LYMPHOCYTES % 25.8 % (18.0-39.1); MEAN CORPUSCULAR HEMOGLOBIN 31.6 pg (28-32); MEAN CORPUSCULAR HGB CONC 33.3 g/dL (31-35); MEAN CORPUSCULAR VOLUME 94.7 fL (81-99); MONOCYTES # (AUTO) 1.1 (0.2-0.8); MONOCYTES % 17.1 % (4.4-11.3); NEUTROPHILS # (AUTO) 3.6 (2.1-6.9); PLATELET COUNT 292 x10e3/uL (140-360); RED BLOOD COUNT 2.66 x10e6/uL (4.3-5.7); RED CELL DISTRIBUTION WIDTH 16.1 % (11.7-14.4)
--- NOTE | 2018-10-08 12:28 | Diagnostic Imaging Report ---
EXAMINATION: PA and lateral views of the chest. COMPARISON: 05/31/2018 CLINICAL HISTORY: Preoperative study for bladder surgery DISCUSSION: Lungs are well-inflated and without focal consolidation, pleural effusion, or pneumothorax. Patchy opacity in the right lung base is likely result of summation of vascular structures with the overlying seventh anterior costochondral junction. Cardiomediastinal contour is notable for atherosclerotic calcification of the thoracic aorta. Normal heart size without overt pulmonary edema. Moderate anterior compression deformity of T12 is new compared to 05/31/2018. IMPRESSION: No acute cardiopulmonary abnormalities. Moderate anterior compression fracture of T12 is age indeterminate though was not present on the examination of 05/31/2018. Correlate for point tenderness. Signed by: Dr. Roldan Braswell M.D. on 10/08/2018 12:25 PM
[2018-10-08 12:50] LABS: ANION GAP 12.2 mmol/L (8-16); BLOOD UREA NITROGEN 25 mg/dL (7-26); BUN/CREATININE RATIO 22 (6-25); CALCIUM 8.9 mg/dL (8.4-10.2); CARBON DIOXIDE 27 mmol/L (22-29); CHLORIDE 96 mmol/L (98-107); CREATININE, SERUM 1.14 mg/dL (0.72-1.25); EST GLOMERULAR FILTRATION RATE > 60 ML/MIN (60-); GLUCOSE 83 mg/dL (74-118); POTASSIUM 4.2 mmol/L (3.5-5.1); SODIUM 131 mmol/L (136-145)
[~2018-10-14] MED LIST changes: +CEFTRIAXONE SOD 1 GM/NS 50 ML 50 ML IV ONE; +DEXAMETHASONE SOD PHOS INJ 4 MG/ML VIAL ONE; +FISH OIL 1,0001 EAC3 PO; +IOPAMIDOL 610MG/1ML 300 MG/ML VIAL IV ONE; +KETOROLAC TROMETHAMINE 30 MG/ML VIAL ONE; +LIDOCAINE HCL 2% LOCAL INJ 5 ML SDV VIAL INJ ONE; +PROPOFOL IV EMULSION 10 MG/ML 20 ML VIAL ONE; +ROCURONIUM BROMIDE 10 MG/ML 5ML VIAL ONE; +SEVOFLURANE INHAL SOLN 250 ML PEN BTL ONE; +VIT D3 PO
--- OUTSIDE RECORDS SUMMARY | 2018-10-14 06:26 | XMS REPORT | Clinical Summary ---
Author Author [facility] Organization [facility] Address Unknown Phone Unavailable Care Team Providers Care Pathologist Assistant Name Role Phone Asked, No Pcp PCP Unavailable Allergies Comments Active Allergy Reactions Severity Noted Date Fluoxetine 04/19/2018 Medications End Date Status Medication Sig Dispensed Refills Start Date Active VENTOLIN HFA 90 0 mcg/actuation inhaler 8 Active aspirin (ECOTRIN) 81 MG 0 enteric coated tablet 8 Active ADVAIR DISKUS 100-50 0 mcg/dose DISKUS 8 Active escitalopram (LEXAPRO) 20 0 MG tablet 8 Active gabapentin (NEURONTIN) Three Times A 0 400 mg capsule Day Active lisinopril Twice A Day 0 (PRINIVIL,ZESTRIL) 10 mg tablet Active montelukast (SINGULAIR) Bedtime 0 10 mg tablet Active traZODone (DESYREL) 100 Bedtime 0 MG tablet Active traMADol (ULTRAM) 50 mg As Needed 0 tablet Active pravastatin (PRAVACHOL) Bedtime 0 40 MG tablet Active acetaminophen-codeine 0 (TYLENOL WITH CODEINE #3) 8 300-30 mg per tablet Active cefdinir (OMNICEF) 300 MG 0 capsule 9 Active clindamycin (CLEOCIN) 300 0 MG capsule 9 Active desloratadine (CLARINEX) 2 5 mg tablet 8 Active HYDROcodone-acetaminophen 0 (NORCO) 10-325 mg per 9 tablet Active prochlorperazine 2 (COMPAZINE) 10 MG tablet 9 08/24/2018 Discontinued ciprofloxacin (CIPRO) 500 0 MG tablet 8 08/21/2018 Discontinued pravastatin (PRAVACHOL) Take by mouth 0 10 MG tablet nightly. 08/21/2018 Discontinued escitalopram (LEXAPRO) 20 Daily 0 MG tablet 08/21/2018 Discontinued gabapentin (NEURONTIN) 2 400 mg capsule 8 08/24/2018 Discontinued metroNIDAZOLE (FLAGYL) 0 500 MG tablet 9 Active Problems Problem Noted Date Hyponatremia 08/21/2018 Encounters Care Team Description Date Type Specialty Magnolia Ng DO Bavare, Arusha Amod, MD MICHELLE (acute kidney injury) (HCC) (Primary Dx); Hyponatremia; Malignant neoplasm of urinary bladder, unspecified site (HCC) 08/21/2018 [facility] General Internal Medicine - Encounter 08/24/2018 Kevin Martinez MD Urinary retention (Primary Dx); Hematuria, unspecified type 04/19/2018 Emergency Emergency Medicine after 10/13/2017 Social History Date Tobacco Use Types Packs/Day Years Used Current Every Day Smoker Cigarettes 2 Smokeless Tobacco: Current User Tobacco Cessation: Ready to Quit: No; Counseling Given: Yes Alcohol Use Drinks/Week oz/Week Comments Yes 2 Standard 1.2 drinks or equivalent Sex Assigned at Date Recorded Not on file Industry Job Start Date Occupation Not on file Not on file Not on file Travel End Travel History Travel Start No recent travel history available. Last Filed Vital Signs Time Taken Vital Sign Reading 08/24/2018 10:59 AM [employer]ATE [employer]LOOR INST[employer] Blood Pressure 110/56 08/24/2018 10:59 AM [employer]IN[employer] FLOOR INSTALLER Pulse 59 08/24/2018 10:59 AM [employer]IN[employer] FLOOR INSTALLER Temperature 35.8 C (96.5 F) 08/24/2018 10:59 AM [employer]AMINATE FLOOR INSTALLER Respiratory Rate 18 08/24/2018 10:59 AM LAMINATE FLOOR INSTALLER Oxygen Saturation 99% - Inhaled Oxygen - Concentration 08/23/2018 1:00 AM [employer]IN[employer] FLOOR INSTALLER Weight 60.6 kg (133 lb 9.6 oz) 08/21/2018 1:54 PM [employer]IN[employer] FLOOR INSTALLER Height 167.6 cm (5' 6") 08/23/2018 1:00 AM [employer]AMIN[employer] FLOOR INSTALLER Body Mass Index 21.56 Plan of Treatment Not on file Procedures Comments Procedure Name Priority Date/Time Associated Diagnosis SODIUM LEVEL STAT 08/24/2018 12:25 PM [employer]AMINATE FLOOR INSTALLER ESTIMATED GFR Routine 08/24/2018 6:53 AM LAMINATE FLOOR INSTALLER RENAL FUNCTION PANEL Routine 08/24/2018 6:53 AM LAMINATE FLOOR INSTALLER ESTIMATED GFR Routine 08/23/2018 4:40 AM LAMINATE FLOOR INSTALLER RENAL FUNCTION PANEL Routine 08/23/2018 4:40 AM LAMINATE FLOOR INSTALLER ESTIMATED GFR Timed 08/22/2018 7:45 AM [employer]AMINATE FLOOR INSTALLER BASIC METABOLIC PANEL Timed 08/22/2018 7:45 AM [employer]AMIN[employer] FLOOR INSTALLER HC COMPLETE BLD COUNT Timed 08/22/2018 W/AUTO DIFF 7:45 AM LAMINATE FLOOR INSTALLER ESTIMATED GFR Timed 08/22/2018 12:12 AM LAMINATE FLOOR INSTALLER BASIC METABOLIC PANEL Timed 08/22/2018 12:12 AM LAMINATE FLOOR INSTALLER ESTIMATED GFR Timed 08/21/2018 8:23 PM LAMINATE FLOOR INSTALLER BASIC METABOLIC PANEL Timed 08/21/2018 8:23 PM LAMINATE FLOOR INSTALLER VT CRITICAL CARE, E/M Routine 08/21/2018 30-74 MINUTES 4:11 PM LAMINATE FLOOR INSTALLER GRAM STAIN STAT 08/21/2018 3:52 PM [employer]AMINATE FLOOR INSTALLER URINE CULTURE STAT 08/21/2018 3:52 PM LAMINATE FLOOR INSTALLER SODIUM LEVEL, URINE, STAT 08/21/2018 RANDOM 2:50 PM LAMINATE FLOOR INSTALLER CREATININE LEVEL, URINE, STAT 08/21/2018 RANDOM 2:50 PM LAMINATE FLOOR INSTALLER URINALYSIS SCREEN AND STAT 08/21/2018 MICROSCOPY, WITH REFLEX 2:50 PM LAMINATE FLOOR INSTALLER TO CULTURE MAGNESIUM LEVEL STAT 08/21/2018 2:30 PM [employer]AMIN[employer] FLOOR INSTALLER PHOSPHORUS LEVEL STAT 08/21/2018 2:30 PM LAMINATE FLOOR INSTALLER ESTIMATED GFR STAT 08/21/2018 2:30 PM [employer]AMINATE FLOOR INSTALLER COMPREHENSIVE METABOLIC STAT 08/21/2018 PANEL 2:30 PM LAMINATE FLOOR INSTALLER HC COMPLETE BLD COUNT STAT 08/21/2018 W/AUTO DIFF 2:20 PM LAMIN[employer] FLOOR INSTALLER URINALYSIS SCREEN AND STAT 04/19/2018 MICROSCOPY, WITH REFLEX 3:05 PM CDT TO CULTURE GRAM STAIN STAT 04/19/2018 3:05 PM CDT URINE CULTURE STAT 04/19/2018 3:05 PM CDT ESTIMATED GFR STAT 04/19/2018 2:35 PM CDT LIPASE LEVEL STAT 04/19/2018 2:35 PM CDT COMPREHENSIVE METABOLIC STAT 04/19/2018 PANEL 2:35 PM CDT HC COMPLETE BLD COUNT STAT 04/19/2018 W/AUTO DIFF 2:35 PM CDT after 10/13/2017 Results * Sodium level (08/24/2018 12:25 PM LAMINATE FLOOR INSTALLER) Sodium 135 135 - 150 mEq/L [facility] Specimen Plasma specimen Performing Organization Address City/[facility] Phone Number [facility] OF [address] [place] [address] PATHOLOGY AND [employer] MEDICINE [address] * Estimated GFR (08/24/2018 6:53 AM LAMINATE FLOOR INSTALLER) Only the most recent of 7 results within the time period is included. Estimated GFR 25 (A) mL/min/1.73 m2 [facility] Comment: [facility] CatergoryUnitsInte rpretation G1 >=90 Normal or high G2 60-89Mildly decreased [id number] Mildly to moderately decreased Y6n16-12 Moderately to severely decreased G4 15-29Severely decreased G5 <15Kidney failure The eGFR was calculated using the Chronic Kidney Disease Epidemiology Collaboration (CKD-EPI) equation. Interpretation is based on recommendations of the National Kidney Foundation-Kidney Disease Outcomes Quality Initiative (NKF-KDOQI) published in 2014. Specimen Plasma specimen Performing Organization Address City/[facility]/Zipcode Phone Number [facility] OF [address] [place] [address] PATHOLOGY AND GENOMIC MEDICINE [address] [place] * Renal function panel (08/24/2018 6:53 AM LAMINATE FLOOR INSTALLER) Only the most recent of 2 results within the time period is included. Sodium 131 (L) 135 - 150 mEq/L [facility] Potassium 4.1 3.5 - 5.0 mEq/L [facility] Chloride 97 (L) 98 - 112 mEq/L [facility] CO2 20 (L) 24 - 31 mmol/L [facility] Anion gap 14@ANIO 7 - 15 mEq/L [facility] BUN 23 (H) 7 - 18 mg/dL [facility] Creatinine 2.50 (H) 0.70 - 1.20 mg/dL [facility] Glucose 91 65 - 100 mg/dL [facility] Calcium 8.4 (L) 8.8 - 10.2 mg/dL [facility] Albumin 2.4 (L) 3.5 - 5.0 g/dL [facility] Phosphorus 3.7 2.4 - 4.5 mg/dL [facility] Specimen Plasma specimen Performing Organization Address City/State/Zipcode Phone Number [facility] DEPARTMENT OF [address] [place] [address] PATHOLOGY AND GENOMIC MEDICINE [place] [address] [address] * CBC with platelet and differential (08/22/2018 7:45 AM LAMINATE FLOOR INSTALLER) Only the most recent of 3 results within the time period is included. WBC 3.9 (L) 4.2 - 11.0 k/uL [facility] RBC 2.97 (L) 4.04 - 5.86 m/uL [facility] HGB 9.0 (L) 13.0 - 17.3 g/dL [facility] HCT 26.1 (L) 34.0 - 45.0 % [facility] MCV 87.9 80.0 - 98.0 fL [facility] MCH 30.3 27.0 - 34.0 pg [facility] MCHC 34.5 31.5 - 36.5 g/dL [facility] RDW - SD 46.1 37.0 - 51.0 fL [facility] MPV 9.4 7.4 - 10.4 fL [facility] Platelet count 103 (L) 150 - 400 k/uL [facility] Nucleated RBC 0.00 /100 WBC [facility] Neutrophils 40.5 36.0 - 66.0 % [facility] Lymphocytes 40.6 24.0 - 44.0 % [facility] Monocytes 16.3 (H) 0.0 - 6.0 % [facility] Eosinophils 1.3 0.0 - 6.0 % [facility] Basophils 0.3 0.0 - 1.2 % [facility] Immature granulocytes 1.0 0.0 - 1.0 % [facility] Specimen Blood Performing Organization Address City/State/Zipcode Phone Number [facility] OF [facility] [place] [address] PATHOLOGY AND GENOMIC MEDICINE [address] * Basic metabolic panel (08/22/2018 7:45 AM LAMINATE FLOOR INSTALLER) Only the most recent of 3 results within the time period is included. Sodium 122 (L) 135 - 150 mEq/L [facility] Potassium 4.3 3.5 - 5.0 mEq/L [facility] Chloride 90 (L) 98 - 112 mEq/L [facility] CO2 22 (L) 24 - 31 mmol/L [facility] Anion gap 10@ANIO 7 - 15 mEq/L [facility] BUN 26 (H) 7 - 18 mg/dL [facility] Creatinine 2.40 (H) 0.70 - 1.20 mg/dL [facility] Glucose 84 65 - 100 mg/dL [facility] Calcium 8.4 (L) 8.8 - 10.2 mg/dL [facility] Specimen Plasma specimen Performing Organization Address City/[facility]/Zipcode Phone Number [facility] OF [address] [place] [address] PATHOLOGY AND GENOMIC MEDICINE [facility] [address] [place], [place] [id number] [place] [address] * CRITICAL CARE (08/21/2018 4:11 PM LAMINATE FLOOR INSTALLER) Narrative Performed At Magnolia Ng DO 08/21/20185:16 PM Critical Care Performed by: Magnolia Ng DO Authorized by: Magnolia Ng DO Critical care provider statement: Critical care time (minutes):35 Critical care time was exclusive of:Separately billable procedures and treating other patients Critical care was necessary to treat or prevent imminent or life-threatening deterioration of the following conditions:Renal failure (Hyponatremia) Critical care was time spent personally by me on the following activities:Development of treatment plan with patient or surrogate, discussions with consultants, discussions with primary provider, evaluation of patient's response to treatment, examination of patient, interpretation of cardiac output measurements, obtaining history from patient or surrogate, ordering and performing treatments and interventions, ordering and review of laboratory studies, pulse oximetry, re-evaluation of patient's condition and review of old charts * Gram stain (08/21/2018 3:52 PM LAMINATE FLOOR INSTALLER) Only the most recent of 2 results within the time period is included. Gram stain result No WBC's or organisms seen. [facility] Comment: HOSPITAL Specimen Information Specimen Source: Urine Specimen Site: Clean catch Specimen Urine Performing Organization Address [facility] Phone Number [facility] DEPARTMENT [address] [place] [address] PATHOLOGY AND GENOMIC MEDICINE [address] * Urine culture (08/21/2018 3:52 PM LAMINATE FLOOR INSTALLER) Only the most recent of 2 results within the time period is included. Urine culture isolate Mixed tiffanie <=10-3 col/cc [facility] Comment: HOSPITAL Specimen Information Specimen Source: Urine Specimen Site: Clean catch Specimen Urine Performing Organization Address City/[facility]/Zipcode Phone Number [facility] DEPARTMENT OF [address] [place] [address], [place] [address] PATHOLOGY AND GENOMIC MEDICINE [address] * Urinalysis screen and microscopy, with reflex to culture (08/21/2018 2:50 PM LAMINATE FLOOR INSTALLER) Only the most recent of 2 results within the time period is included. Specimen site Clean catch [facility] Color, UA Yellow [facility] Appearance, UA Clear [facility] Specific gravity, UA 1.006 1.001 - 1.035 [facility] pH, UA 5.0 5.0 - 8.5 [facility] Protein, UA 2+ (A) Negative [facility] Glucose, UA 1+ (A) Negative [facility] Ketones, UA Negative Negative [facility] Bilirubin, UA Negative Negative [facility] Blood, UA Negative Negative [facility] Nitrite, UA Negative Negative [facility] Urobilinogen, UA Negative <2.0 [facility] Leukocyte esterase, UA Trace (A) Negative [facility] WBC, UA 2 0 - 1 /HPF [facility] RBC, UA 2 0 - 5 /HPF [facility] Bacteria, UA None seen None seen [facility] Yeast, UA None seen [facility] Yeast with pseudohyphae, None seen [facility] Specimen Urine Performing Organization Address City/[facility] Phone Number [facility] [place] [address] [place] [address] PATHOLOGY AND GENOMIC MEDICINE [place] [address] [address] * Sodium level, urine, random (08/21/2018 2:50 PM LAMINATE FLOOR INSTALLER) Sodium, urine, random <34 (A) mEQ/L [facility] Specimen Urine Performing Organization Address City/[facility] Phone Number [facility] DE[facility] OF [facility] [place] [address] PATHOLOGY AND GENOMIC MEDICINE [place] [address] [address] * Creatinine level, urine, random (08/21/2018 2:50 PM LAMINATE FLOOR INSTALLER) Creatinine, urine, random 57 mg/dL [facility] Specimen Urine Performing Organization Address City/[facility] Phone Number [facility] DE[facility]MENT OF [address] [place] [address] PATHOLOGY AND GENOMIC MEDICINE [address] * Phosphorus level (08/21/2018 2:30 PM LAMINATE FLOOR INSTALLER) Phosphorus 3.2 2.4 - 4.5 mg/dL [facility] Specimen Plasma specimen Performing Organization Address [facility] Phone Number [facility] DE[facility]MENT OF [address] [place] [address] PATHOLOGY AND GENOMIC MEDICINE [address] [place] * Magnesium level (08/21/2018 2:30 PM LAMINATE FLOOR INSTALLER) Magnesium 1.60 1.60 - 2.40 mg/dL [facility] Specimen Plasma specimen Performing Organization Address [facility] Vegas[facility]s Phone Number [facility] DE[facility] [address] [place] [address] PATHOLOGY AND GENOMIC MEDICINE [address] * Comprehensive metabolic panel (08/21/2018 2:30 PM LAMINATE FLOOR INSTALLER) Only the most recent of 2 results within the time period is included. Sodium 117 (LL) 135 - 150 mEq/L [facility] Comment: [facility] Results called to and read back by NORMA DAI AT ER COO NA, CL08/21/2018 15:19 Potassium 3.2 (L) 3.5 - 5.0 mEq/L [facility] Chloride 75 (LL) 98 - 112 mEq/L [facility] CO2 27 24 - 31 mmol/L [facility] Anion gap 15@ANIO 7 - 15 mEq/L [facility] BUN 29 (H) 7 - 18 mg/dL [facility] Creatinine 2.50 (H) 0.70 - 1.20 mg/dL [facility] Glucose 94 65 - 100 mg/dL [facility] Calcium 8.7 (L) 8.8 - 10.2 mg/dL [facility] Protein 6.6 6.3 - 8.3 g/dL [facility] Albumin 3.3 (L) 3.5 - 5.0 g/dL [facility] A/G ratio 1.0 0.7 - 3.8 [facility] Alkaline phosphatase 73 0 - 129 U/L [facility] AST 47 10 - 50 U/L [facility] ALT 26 5 - 50 U/L [facility] Total bilirubin <0.3 0.2 - 1.2 mg/dL [facility] Specimen Plasma specimen Performing Organization Address City/[facility] [place] [address] PATHOLOGY AND GENOMIC MEDICINE [address] * Lipase level (04/19/2018 2:35 PM CDT) Lipase 26 13 - 60 U/L [facility] DE[facility]MENT OF PATHOLOGY AND GENOMIC MEDICINE Specimen Plasma specimen Performing Organization Address City/[facility] Phone Number [facility] [place] [address] PATHOLOGY AND GENOMIC MEDICINE after 10/13/2017 Insurance Payer Benefit Subscriber ID Type Phone Address Plan / Group MEDICARE MEDICARE xxxxxxxxxx Medicare [place], [place] PART A AND B BCBS BCBS xxxxxxxxxxxx PPO CHOICE PPO/JUN ALAS PPO Advance Directives Patient has advance care planning documents on file. For more information, nina cortes contact: [facility] [address] [place] [address]
--- NOTE | 2018-10-14 09:21 | NUR ---
SPIRITUAL CARE - Pre-Surgery Assessment: Pt in bed. Pt's at bedside. Pt reported supportive attention from family and friends. Intervention: I provided pastoral presence, hospitality, and sympathetic listening. I acquainted pt with availability of slab inspector while hospitalized. Outcome: Pt expressed appreciation for visit. No need for follow up indicated at this time. GERALDINE Eddylain Spiritual Care Department O: [phone] Pager: [phone] ([phone] number calling from)
[2018-10-14 10:25] VITALS: BP 158/81
--- NOTE | 2018-10-14 16:17 | Operative Report ---
DATE OF PROCEDURE: 10/14/2018 SURGEON: Zeke Aviles MD PREOPERATIVE DIAGNOSIS: Transitional cell carcinoma of the bladder. POSTOPERATIVE DIAGNOSIS: Transitional cell carcinoma of the bladder. PROCEDURE PERFORMED: 1. Cystoscopy. 2. Transurethral resection of bladder tumor. ANESTHESIA: General anesthesia. ESTIMATED BLOOD LOSS: Minimal. INDICATION: Mr. Phillip Crowder is a 68-year-old gentleman with a previous history of known muscle-invasive TCC of the bladder. He has been unable to completely tolerate chemotherapy and an attempt is being made doing a palliative resection of any residual or recurrent tumor. PROCEDURE IN DETAIL: The patient was brought into the operating room, placed in supine position. After administration of general anesthesia, he was placed in dorsal lithotomy position and prepped and draped in usual sterile fashion. Cystourethroscopy was performed using 21-Austrian cystoscope. The anterior and posterior urethra were noted to be normal. Prostate revealed evidence of prior resection. There was small bladder neck contracture, but it was passable by the cystoscope. The bladder was then entered without difficulty. The ureteral orifices were in a normal anatomic position and produce clear efflux. The bladder was very trabeculated with multiple tics noted. There was a small mucosal appearing sessile lesion on the left lateral wall just above the ureteral orifice, which was suspicious for recurrent or residual tumor. There is also some scarring seen in this area, this was the location of the prior resection. Bladder was then pulled and cystoscope and sheath were removed. A 26-Austrian resectoscope sheath was then placed and the Bannerman resectoscope was used to perform the procedure. The site of the residual/recurrent tumor was seen and this area was resected down to the level of the perivascular fat. No gross bleeding was noted, but the area was coagulated to ensure hemostasis. There were no other mucosal lesions identified. Given the bladder neck contracture and need to identify tumor in the prostatic urethra, biopsies were taken of the prostatic urethra at the 7 o'clock position. This allowed opening of the bladder neck and presumed improved voiding. This was sent as a separate specimen labelled prostatic urethra. Once adequate hemostasis was secured, the bladder was left full and the resectoscope and sheath were removed. A 20-Austrian Leal was placed and the balloon inflated. He was returned to supine position and anesthesia was reversed. He was transferred to a bed and taken to the postanesthesia care unit in good condition. Of note, the needle and instrument counts were correct at the conclusion of the case. MD DAVIN Willoughby/DEANNE /[id number] CHANCE
== END | disposition home or self-care (01) ==
LOC: OR 06:22
PROVIDERS: ATTEND Urology
DX: C67.9 Malignant neoplasm of bladder, unspecified (principal); N32.0 Bladder-neck obstruction; N32.89 Other specified disorders of bladder; J44.9 Chronic obstructive pulmonary disease, unspecified; I10 Essential (primary) hypertension; F17.210 Nicotine dependence, cigarettes, uncomplicated; Z88.8 Allergy status to other drugs, medicaments and biological substances; Z01.810 Encounter for preprocedural cardiovascular examination; Z01.812 Encounter for preprocedural laboratory examination; Z01.818 Encounter for other preprocedural examination; Z79.899 Other long term (current) drug therapy; Z79.82 Long term (current) use of aspirin
CPT/HCPCS: 36415; 52234; 71046; 80048; 85025; 88305; 88342; 93005; J0696; J1100; J1885; J2001; J2704; Q9967

== ENCOUNTER → 2019-06-09 | Day surgery (SDC) | payer MEDICARE, BC ==
[2019-05-26 12:10] LABS: BASOPHILS % 0.4 % (0.0-1.0); EOSINOPHILS # (AUTO) 0.2 (0.0-0.4); EOSINOPHILS % 1.9 % (0.0-6.0); HEMATOCRIT 32.5 % (38.2-49.6); HEMOGLOBIN 10.9 g/dL (14.0-18.0); LYMPHOCYTES # (AUTO) 1.9 (1.0-3.2); LYMPHOCYTES % 20.2 % (18.0-39.1); MEAN CORPUSCULAR HEMOGLOBIN 30.1 pg (28-32); MEAN CORPUSCULAR HGB CONC 33.5 g/dL (31-35); MEAN CORPUSCULAR VOLUME 89.8 fL (81-99); MONOCYTES # (AUTO) 1.2 (0.2-0.8); MONOCYTES % 12.2 % (4.4-11.3); NEUTROPHILS # (AUTO) 6.1 (2.1-6.9); PLATELET COUNT 250 x10e3/uL (140-360); RED BLOOD COUNT 3.62 x10e6/uL (4.3-5.7); RED CELL DISTRIBUTION WIDTH 14.1 % (11.7-14.4)
--- NOTE | 2019-05-26 12:25 | Diagnostic Imaging Report ---
EXAMINATION: CHEST 2 VIEWS INDICATION: Pre-operative COMPARISON: None FINDINGS: LINES/TUBES:None LUNGS:The lungs are mildly hyperinflated. No focal consolidation or pulmonary edema. PLEURA:No pleural effusion or pneumothorax. MEDIASTINUM:The cardiomediastinal silhouette appears normal in size and shape. BONES/SOFT TISSUES:No acute osseous injury. ABDOMEN:No free air under the diaphragm. IMPRESSION: No focal pneumonia or pulmonary edema. Signed by: Ti Christianson MD on 05/26/2019 12:21 PM
[2019-05-26 12:34] LABS: ANION GAP 12.7 mmol/L (8-16); CALCIUM 9.5 mg/dL (8.4-10.2); CREATININE, SERUM 1.5 mg/dL (0.72-1.25); POTASSIUM 4.7 mmol/L (3.5-5.1)
[~2019-06-09] MED LIST changes: -IOPAMIDOL 610MG/1ML 300 MG/ML VIAL IV ONE; -KETOROLAC TROMETHAMINE 30 MG/ML VIAL ONE; +MULTI-VITAMIN1 EACH PO; +ONDANSETRON HCL INJ 2MG/ML 2ML 2 MG/ML VIAL ONE; -ROCURONIUM BROMIDE 10 MG/ML 5ML VIAL ONE
[2019-06-09 11:45] VITALS: BP 173/81
--- NOTE | 2019-06-09 18:06 | Operative Report ---
DATE OF PROCEDURE: 06/09/2019 SURGEON: Zeke Aviles MD PREOPERATIVE DIAGNOSIS: History of transitional cell carcinoma of the bladder. POSTOPERATIVE DIAGNOSIS: History of transitional cell carcinoma of the bladder. PROCEDURES PERFORMED: 1. Cystoscopy. 2. Bladder biopsy. ANESTHESIA: General anesthesia. ESTIMATED BLOOD LOSS: Minimal. INDICATIONS: Mr. Crowder is a 68-year-old gentleman with previously diagnosed muscle-invasive TCC of the bladder, who previously undergone 2 courses of chemotherapy. He was able to tolerate further. He did well for several months, but recently had positive FISH and now presents for repeat cystoscopy with biopsy. PROCEDURE IN DETAIL: The patient was brought in the operating room and placed in supine position. After administration of general anesthesia, was placed in dorsal lithotomy position, and prepped and draped in the usual sterile fashion. Cystourethroscopy was performed using 22-Citizen Of [place] cystoscope. The anterior and posterior urethra were noted to be normal. The prostate revealed evidence of prior resection and was largely open. There was mild contracture noted at the bladder neck. The bladder was entered without difficulty. The bladder mucosa upon entering was noted be severely trabeculated with tics and cellules throughout. The left ureteral orifice was clearly visualized. The right ureteral orifice was difficult to identify. In the left lateral wall region of his prior TURBT, there was some scarring and yellowish tissue, and biopsies were obtained from this location using the cold cup bladder biopsy forceps. There was also some questionable sessile tumors noted on the portion of the left lateral wall closest to the bladder neck, and this was also biopsied with the cold cup bladder biopsy forceps. Both of these biopsy sites were fulgurated using electrocautery devices. There were no obvious papillary lesions seen and no other mucosal lesions identified. Once adequate hemostasis was secured, the bladder was drained and the cystoscope and sheath were removed. The patient was returned to supine position and anesthesia was reversed. He was transferred to a bed and taken to the postanesthesia care unit in good condition. Of note, the needle and instrument count were correct at the conclusion of the case. MD MERCY WilloughbyW/MODL /[id number] MTDD
== END | disposition home or self-care (01) ==
LOC: OR 07:06
PROVIDERS: ATTEND Urology
DX: D09.0 Carcinoma in situ of bladder (principal); N32.0 Bladder-neck obstruction; N32.89 Other specified disorders of bladder; I12.9 Hypertensive chronic kidney disease with stage 1 through stage 4 chronic kidney disease, or unspecified chronic kidney disease; N18.9 Chronic kidney disease, unspecified; J44.9 Chronic obstructive pulmonary disease, unspecified; F17.210 Nicotine dependence, cigarettes, uncomplicated; Z88.8 Allergy status to other drugs, medicaments and biological substances; Z01.810 Encounter for preprocedural cardiovascular examination; Z01.812 Encounter for preprocedural laboratory examination; Z01.818 Encounter for other preprocedural examination
CPT/HCPCS: 36415; 52214; 71046; 80048; 85025; 88305; 93005; J0696; J1100; J2001; J2405; J2704

== ENCOUNTER → 2019-09-29 | Day surgery (SDC) | payer MEDICARE, BC ==
[2019-09-27 16:08] LABS: BASOPHILS # (AUTO) 0.1 (0.0-0.1); BASOPHILS % 0.8 % (0.0-1.0); EOSINOPHILS # (AUTO) 0.4 (0.0-0.4); EOSINOPHILS % 4.1 % (0.0-6.0); HEMATOCRIT 34.1 % (38.2-49.6); HEMOGLOBIN 11.6 g/dL (14.0-18.0); LYMPHOCYTES # (AUTO) 2.2 (1.0-3.2); LYMPHOCYTES % 24.1 % (18.0-39.1); MEAN CORPUSCULAR VOLUME 88.1 fL (81-99); MONOCYTES # (AUTO) 1.1 (0.2-0.8); MONOCYTES % 11.8 % (4.4-11.3); NEUTROPHILS # (AUTO) 5.4 (2.1-6.9); NEUTROPHILS % 58.5 % (38.7-80.0); PLATELET COUNT 463 x10e3/uL (140-360); RED BLOOD COUNT 3.87 x10e6/uL (4.3-5.7); RED CELL DISTRIBUTION WIDTH 15.2 % (11.7-14.4)
[2019-09-27 16:23] LABS: ANION GAP 14.6 mmol/L (8-16); CALCIUM 9.3 mg/dL (8.4-10.2); CREATININE, SERUM 2.52 mg/dL (0.72-1.25); POTASSIUM 3.6 mmol/L (3.5-5.1)
[~2019-09-29] MED LIST changes: +IBUPROFEN400 MG PO; +IOPAMIDOL 300MG/ML 50ML INFUS..BTL IV ONE; +VENTOLIN HFA18 GM INH
[2019-09-29 09:12] VITALS: BP 161/85
--- NOTE | 2019-10-03 08:58 | Operative Report ---
DATE OF PROCEDURE: 09/29/2019 SURGEON: Zeke Aviles MD PREOPERATIVE DIAGNOSIS: History of transitional cell carcinoma of the bladder. POSTOPERATIVE DIAGNOSIS: History of transitional cell carcinoma of the bladder. OPERATIVE PROCEDURE PERFORMED: 1. Cystoscopy. 2. Bladder biopsy. ANESTHESIA: General anesthesia. ESTIMATED BLOOD LOSS: Minimal. INDICATIONS: Mr. Phillip Crowder is a 69-year-old gentleman with a past history of muscle-invasive TCC of the bladder, which the patient opted to treat conservatively. He has now finished a course of 6 weeks of intravesical BCG and he is here for a post BCG biopsies. PROCEDURE IN DETAIL: The patient brought into the operating room, placed in supine position, and after administration of general anesthesia, he was placed in dorsal lithotomy position and prepped and draped in the usual sterile fashion. Cystourethroscopy was performed using a 20-Canadian cystoscope. The anterior and posterior urethra were noted to be normal. The prostate revealed mild enlargement of the lateral lobes bilaterally with mild elevation of the median bar. The bladder was emptied with minimal difficulty. Upon entering into the bladder, the ureteral orifice in normal anatomic position, though the right ureteral orifice was difficult to visualize. There were some scar seen from prior resections and biopsies in the bladder. There were no active lesions identified. There was a mild area of sessile growths versus erythematous patch on the posterior wall and biopsies were obtained from this section. This section was then fulgurated using the electrocautery device. Biopsies were then taken from the right and left lateral clark and trigone. These were all sent to pathology for microscopic analysis. All these sites were cauterized using the Bugbee electrode. Once adequate hemostasis was obtained, the bladder was drained in its entirety and the cystoscope and sheath were removed. The patient was returned to supine position and anesthesia was reversed. He was transferred to bed and taken to the postanesthesia care unit in good condition. Of note, the needle and instrument count were correct at the conclusion of the case. Zeke Aviles MD HLW/MODL /[id number]
== END | disposition home or self-care (01) ==
LOC: OR 05:35
PROVIDERS: ATTEND Urology
DX: D49.4 Neoplasm of unspecified behavior of bladder (principal); Z85.51 Personal history of malignant neoplasm of bladder; I12.9 Hypertensive chronic kidney disease with stage 1 through stage 4 chronic kidney disease, or unspecified chronic kidney disease; N18.4 Chronic kidney disease, stage 4 (severe); J44.9 Chronic obstructive pulmonary disease, unspecified; E78.5 Hyperlipidemia, unspecified; M54.9 Dorsalgia, unspecified; F32.9 Major depressive disorder, single episode, unspecified; F17.210 Nicotine dependence, cigarettes, uncomplicated; Z88.8 Allergy status to other drugs, medicaments and biological substances; Z01.810 Encounter for preprocedural cardiovascular examination
CPT/HCPCS: 36415; 52214; 80048; 85025; 88305; 93005; J0696; J1100; J2001; J2405; J2704